=== PATIENT | female | born 1945 | race Caucasian/White ===

== ENCOUNTER 2016-09-05 10:18 | Emergency (ER) | payer MEDICARE ==
[2016-09-05] MEDS ORDERED: BABY ASPIRIN 81 MG CHEW PO ONE (10:29)
[2016-09-05] MEDS ORDERED: Sodium Chloride 0.9% 1000 ML 1,000 ML IV SCH (10:30)
[2016-09-05] MEDS ORDERED: Sodium Chloride 0.9% 1000 ML 1,000 ML ONE (10:37)
[2016-09-05] MEDS ORDERED: BABY ASPIRIN 81 MG CHEW ONE (10:37)
--- NOTE | 2016-09-05 10:38 | ERPHSYRPT ---
- History of Present Illness Time Seen by Provider: 09/05/16 10:31 Source: patient Exam Limitations: no limitations Physician History: This is a 70-year-old white female with history of high blood pressure, hypothyroidism, SVT and arthritis. Patient arrives with complaints that she feels as if her blood pressure has been up since starting losartin, she states she has been intermittently feeling like her heart has been pounding since this was started on August 27, 2016 According to the patient this morning when she got up around 7:00 she began to feel as if she was having a pounding in her chest she denied any shortness of breath she did have some nausea she felt like her blood pressure was elevated at home She denies chest pain other than pounding in her chest Patient does have a history of hypothyroidism Past medical history includes type blood pressure, hypothyroidism, arthritis, vitamin D deficiency, supraventricular tachycardia Past surgical history includes cholecystectomy, , tonsillectomy, arthroscopic surgery right knee Social history patient denies tobacco or alcohol use she does state she drinks some coffee on occasion Timing/Duration: today (today at 7:00) Severity: moderate Modifying Factors: Improves With: medication (recently started losartan) Associated Symptoms: nausea, other (palpitations), No vomiting, No abdominal pain, No shortness of breath, No heartburn, No diaphoresis, No cough, No chills , No chest pain, No fever, No headaches, No loss of appetite, No malaise, No rash, No syncope, No seizure, No weakness Allergies/Adverse Reactions: No Known Drug Allergies Allergy (Verified 09/05/16 10:46) Home Medications: Levothyroxine Sodium [Synthroid] 88 mcg PO DAILY 04/06/16 [History] Diltiazem HCl [Cardizem Cd] 180 mg PO DAILY 09/05/16 [History] Losartan Potassium [Cozaar] 100 mg PO DAILY 09/05/16 [History] Hx Influenza Vaccination/Date Given: No Hx Pneumococcal Vaccination/Date Given: Yes - Review of Systems Constitutional: No Fever, No Chills Eyes: No Symptoms Ears, Nose, & Throat: No Symptoms Respiratory: No Cough, No Dyspnea Cardiac: Palpitations, Other (feels pounding in her chest), No Chest Pain, No Edema, No Syncope, No Orthopnea, No PND Abdominal/Gastrointestinal: Nausea, No Abdominal Pain, No Vomiting, No Diarrhea , No Constipation, No Hematemesis, No Hematochezia, No Melena, No Dysphagia, No Appetite Changes Genitourinary Symptoms: No Dysuria Musculoskeletal: No Back Pain, No Neck Pain Skin: No Rash Neurological: No Dizziness, No Focal Weakness, No Sensory Changes Psychological: No Symptoms Endocrine: No Symptoms All Other Systems: Reviewed and Negative - Past Medical History Pertinent Past Medical History: Yes Neurological History: No Pertinent History ENT History: No Pertinent History Cardiac History: No Pertinent History Respiratory History: No Pertinent History Endocrine Medical History: Hypothyroidism Musculoskeletal History: Arthritis GI Medical History: Gallbladder Disease Psycho-Social History: No Pertinent History Female Reproductive Disorders: No Pertinent History Other Medical History: vit d difficency, shogrens disease, R knee arthroscopy, cholecystectomy, 3 C/S - Past Surgical History Past Surgical History: Yes Neuro Surgical History: No Pertinent History Cardiac: No Pertinent History Respiratory: No Pertinent History Gastrointestinal: Cholecystectomy Genitourinary: No Pertinent History Musculoskeletal: Orthopedic Surgery Female Surgical History: Section Other Surgical History: tonsils, arthorsopy - Social History Smoking Status: Former smoker Exposure to second hand smoke: No Drug Use: none Patient Lives Alone: No - Nursing Vital Signs Nursing Vital Signs: Initial Vital Signs Temperature 98.6 F Temperature Source Oral Pulse Rate [] 94 Pulse Rate 76 Respiratory Rate 16 Blood Pressure [] 139/76 Pain Intensity 0 - Physical Exam General Appearance: no apparent distress, alert Eye Exam: PERRL/EOMI, eyes nml inspection Ears, Nose, Throat Exam: normal ENT inspection, TMs normal, pharynx normal, moist mucous membranes Neck Exam: normal inspection, non-tender, supple, full range of motion Respiratory Exam: normal breath sounds, lungs clear, No respiratory distress Cardiovascular Exam: regular rate/rhythm, normal heart sounds, normal peripheral pulses Gastrointestinal/Abdomen Exam: soft, normal bowel sounds, No tenderness, No mass Back Exam: normal inspection, normal range of motion, No CVA tenderness, No vertebral tenderness Extremity Exam: normal inspection, normal range of motion, pelvis stable Neurologic Exam: alert, oriented x 3, cooperative, normal mood/affect, nml cerebellar function, nml station & gait, sensation nml, No motor deficits Skin Exam: normal color, warm, dry, No rash SpO2 Interpretation: normal (97%) - Course Nursing assessment & vital signs reviewed: Yes EKG Interpreted by Me: RATE (90 bpm), Sinus Rhythm, NORMAL AXIS, Other (EKG, normal sinus rhythm 90 bpm normal axis no acute ST or T wave changes compared to April 06, 2016) - Radiology Exams Chest X-ray Interpretation: Interpreted by me, Negative, No Pneumonia, No Pneumothorax , Other (no acute disease process noted) Ordered Tests: Active Orders 24 hr Category Date Time Status Manufacturing Associate STAT Care 09/05/16 10:29 Active EKG-ER Only STAT Care 09/05/16 10:29 Active IV Insertion STAT Care 09/05/16 10:29 Active Pulse Oximetry (ED) STAT Care 09/05/16 10:29 Active CHEST 1 VIEW (PORTABLE) Stat Exams 09/05/16 10:30 Taken CBC W DIFF Stat Lab 09/05/16 10:35 Completed CMP Stat Lab 09/05/16 10:35 Completed TROPONIN Q3H Lab 09/05/16 10:30 Completed TROPONIN Q3H Lab 09/05/16 13:30 Ordered TROPONIN Q3H Lab 09/05/16 16:30 Ordered TROPONIN Q3H Lab 09/05/16 19:30 Ordered TROPONIN Q3H Lab 09/05/16 22:30 Ordered TSH [TSH, 3RD Generation] Stat Lab 09/05/16 10:35 Completed Medication Summary Generic Name Dose Route Start Last Admin Trade Name Freq PRN Reason Stop Dose Admin Sodium Chloride 1,000 mls @ 50 mls/hr 09/05/16 10:30 09/05/16 10:37 Sodium Chloride 0.9% 1000 Ml IV 10/05/16 10:29 50 mls/hr .Q20H ERASTO Administration Discontinued Medications Generic Name Dose Route Start Last Admin Trade Name Freq PRN Reason Stop Dose Admin Aspirin 324 mg 09/05/16 10:29 09/05/16 10:37 Baby Aspirin 81 Mg Chew PO 09/05/16 10:30 324 mg STAT ONE Administration Aspirin Confirm 09/05/16 10:37 Baby Aspirin 81 Mg Chew Administered 09/05/16 10:38 Dose 324 mg .ROUTE .STK-MED ONE Sodium Chloride Confirm 09/05/16 10:37 Sodium Chloride 0.9% 1000 Ml Administered 09/05/16 10:38 Dose 1,000 mls @ ud .ROUTE .STK-MED ONE Lab/Rad Data: Laboratory Result Diagrams 09/05/16 10:35 09/05/16 10:35 Laboratory Results 09/05/16 09/05/16 09/05/16 Range/Units 10:35 10:35 10:35 WBC 5.2 (4.0-10.5) K/mm3 RBC 4.05 L (4.1-5.4) M/mm3 Hgb 12.9 (12.0-16.0) gm/dl Hct 39.2 (35-47) % MCV 96.8 (78-100) fl MCH 31.8 (26-32) pg MCHC 32.9 (32-36) g/dl RDW 12.6 (11.5-14.0) % Plt Count 239 (150-450) K/mm3 MPV 11.0 H (6-9.5) fl Gran % 68.2 H (36.0-66.0) % Lymphocytes % 13.6 L (24.0-44.0) % Monocytes % 17.0 H (0.0-12.0) % Eosinophils % 0.8 (0.00-5.0) % Basophils % 0.4 (0.0-0.4) % Basophils # 0.02 (0-0.4) Sodium 142 (136-145) mEq/L Potassium 4.0 (3.5-5.1) mEq/L Chloride 105 (98-107) mEq/L Carbon Dioxide 26.3 (21-32) mEq/L Anion Gap 14.9 (5-15) MEQ/L BUN 18 (9-20) mg/dL Creatinine 0.87 (0.55-1.30) mg/dl Estimated GFR > 60 ML/MIN Glucose 106 (70-110) MG/DL Calcium 8.8 (8.5-10.1) mg/dL Total Bilirubin 0.4 (0.2-1.0) mg/dL AST 14 L (15-37) U/L ALT 19 (12-78) U/L Alkaline Phosphatase 65 (46-116) U/L Troponin I (0.000-0.056) ng/ml Serum Total Protein 7.0 (6.4-8.2) gm/dL Albumin 3.9 (3.4-5.0) g/dL TSH 3rd Generation 0.594 (0.358-3.740) mIU/L 09/05/16 Range/Units 10:30 WBC (4.0-10.5) K/mm3 RBC (4.1-5.4) M/mm3 Hgb (12.0-16.0) gm/dl Hct (35-47) % MCV (78-100) fl MCH (26-32) pg MCHC (32-36) g/dl RDW (11.5-14.0) % Plt Count (150-450) K/mm3 MPV (6-9.5) fl Gran % (36.0-66.0) % Lymphocytes % (24.0-44.0) % Monocytes % (0.0-12.0) % Eosinophils % (0.00-5.0) % Basophils % (0.0-0.4) % Basophils # (0-0.4) Sodium (136-145) mEq/L Potassium (3.5-5.1) mEq/L Chloride (98-107) mEq/L Carbon Dioxide (21-32) mEq/L Anion Gap (5-15) MEQ/L BUN (9-20) mg/dL Creatinine (0.55-1.30) mg/dl Estimated GFR ML/MIN Glucose (70-110) MG/DL Calcium (8.5-10.1) mg/dL Total Bilirubin (0.2-1.0) mg/dL AST (15-37) U/L ALT (12-78) U/L Alkaline Phosphatase (46-116) U/L Troponin I < 0.017 (0.000-0.056) ng/ml Serum Total Protein (6.4-8.2) gm/dL Albumin (3.4-5.0) g/dL TSH 3rd Generation (0.358-3.740) mIU/L - Progress Progress: improved Progress Note: 09/05/16 10:37 70-year-old white female with history of SVT and hypertension. She arrives with complaint of intermittent pounding in her chest which has been going on since beginning Losartin for control of her blood pressure on August 27, 2016 Patient states that this morning she was getting up getting ready to get dressed and began having pounding in her chest she did not have any shortness of breath she did have some nausea no vomiting Patient states she felt like her blood pressure was elevated at home. On arrival patient with a essentially normal blood pressure pulse she does not appear to be in acute distress. Will go ahead and give patient aspirin check cardiac enzymes CMP EKG chest x- ray. And check TSH. 09/05/16 11:44 Patient's EKG chest x-ray labs all essentially normal. Patient's blood pressure stable. Patient without any chest pain at this time. Patient does not want to stay for repeat troponins. repeat troponins were offered. Will discharge 09/05/16 11:46 - Departure Time of Disposition: 11:45 Departure Disposition: Home Clinical Impression: Palpitations Condition: Stable Critical Care Time: No Additional Instructions: Return home. Rest. Medications as prescribed by your family doctor. Avoid caffeine. Follow-up with your family doctor. Return for acute distress or for severe symptoms.
[2016-09-05 10:45] VITALS: O2SAT 97
[2016-09-05 10:49] LABS: BASOPHIL % 0.4 % (0.0-0.4); Eosinophil % 0.8 % (0.00-5.0); Granulocytes % 68.2 % (36.0-66.0); Lymphocytes % 13.6 % (24.0-44.0); Mean Cell Volume 96.8 fl (78-100); Platelet Count 239 K/mm3 (150-450); Red Blood Count 4.05 M/mm3 (4.1-5.4); Red Cell Distribution Width 12.6 % (11.5-14.0); White Blood Count 5.2 K/mm3 (4.0-10.5)
[2016-09-05 10:51] LABS: Mean Corpuscular Hemoglobin 31.8 pg (26-32)
[2016-09-05 11:05] LABS: ALBUMIN 3.9 g/dL (3.4-5.0); ALKALINE PHOSPHATASE 65 U/L (46-116); ANION GAP 14.9 MEQ/L (5-15); BILIRUBIN,TOTAL 0.4 mg/dL (0.2-1.0); BLOOD UREA NITROGEN 18 mg/dL (9-20); CHLORIDE 105 mEq/L (98-107); Carbon Dioxide 26.3 mEq/L (21-32); Glucose 106 MG/DL (70-110); SGOT/AST 14 U/L (15-37); SGPT/ALT 19 U/L (12-78); SODIUM 142 mEq/L (136-145)
[2016-09-05 12:07] VITALS: BP 136/70; PULSE 96
--- NOTE | 2016-09-05 20:40 | XRAY ---
Indication: Palpitations. Comparison: April 06, 2016. Portable chest again demonstrates normal heart, lungs, and bony thorax.
== END 2016-09-05 12:06 | disposition home or self-care (01) ==
LOC: ED 10:18
DX: R00.2 Palpitations (principal); I10 Essential (primary) hypertension; E03.9 Hypothyroidism, unspecified; I47.1 Supraventricular tachycardia; M19.90 Unspecified osteoarthritis, unspecified site; E55.9 Vitamin D deficiency, unspecified; R11.0 Nausea
CPT/HCPCS: 36000; 36415; 71010; 80053; 84443; 84484; 85025; 93005; 93041; 96360; 96361; 99283; 99285

== ENCOUNTER 2017-12-23 11:43 | Emergency (ER) | payer MEDICARE ==
[2017-12-23 12:03] VITALS: BP 142/85; PULSE 76; O2SAT 96
--- NOTE | 2017-12-23 12:15 | ERPHSYRPT ---
- History of Present Illness Time Seen by Provider: 12/23/17 12:03 Source: patient Exam Limitations: no limitations Patient Subjective Stated Complaint: states stepped down off a step at home yesterday and felt something pop behind left knee. now having pain posterior left knee and numbness down left leg. Triage Nursing Assessment: ambulated to room per self guarding left leg. skin w /d, color normal. left posterior knee tender to touch. good pedal pulse. left foot warm, normal color. no edema noted Physician History: This is a 72-year-old white female with history of high blood pressure, hypothyroidism, arthritis, vitamin D deficiency, SVT, Patient arrives with complaint of pain in her left knee she states she was stepping off a step and felt a pop in the back of her knee she states she is having pain in her left knee posteriorly and anteriorly she states she has pain with flexing her knee she states that she had some paresthesias in the left lateral calf She denies any other injury denies any hip pain no pain in her feet. Past medical history includes high blood pressure, hypothyroidism, arthritis, vitamin D deficiency, SVT Past surgical history includes cholecystectomy, , tonsillectomy, right knee arthroscopically Social history patient denies tobacco or illicit drug use Method of Injury: other (step down a step and felt a pop in the posterior left knee) Occurred: yesterday Quality: constant Severity of Pain-Max: moderate Severity of Pain-Current: mild Lower Extremities Pain: knee: left Modifying Factors: Improves With: movement (pain worse with bending left knee) Associated Symptoms: other (Pain with walking) Allergies/Adverse Reactions: No Known Drug Allergies Allergy (Verified 12/23/17 11:54) Home Medications: Levothyroxine Sodium [Synthroid] 88 mcg PO DAILY 04/06/16 [History] Diltiazem HCl [Cardizem Cd] 180 mg PO DAILY 09/05/16 [History] Losartan Potassium [Cozaar] 100 mg PO DAILY 09/05/16 [History] Metformin HCl [Metformin HCl] 500 mg PO BID 12/23/17 [History] Hx Tetanus, Diphtheria Vaccination/Date Given: No Hx Influenza Vaccination/Date Given: No Hx Pneumococcal Vaccination/Date Given: Yes - Review of Systems Constitutional: No Fever, No Chills Eyes: No Symptoms Ears, Nose, & Throat: No Symptoms Respiratory: No Cough, No Dyspnea Cardiac: No Chest Pain, No Edema, No Syncope Abdominal/Gastrointestinal: No Abdominal Pain, No Nausea, No Vomiting, No Diarrhea Genitourinary Symptoms: No Dysuria Musculoskeletal: Other (Pain in left knee worse with flexion and walking) Skin: No Rash Neurological: Parasthesia (Paresthesia left lateral calf) Psychological: No Symptoms Endocrine: No Symptoms All Other Systems: Reviewed and Negative - Past Medical History Pertinent Past Medical History: Yes Neurological History: No Pertinent History ENT History: No Pertinent History Cardiac History: Arrhythmia, Hypertension Respiratory History: Bronchitis Endocrine Medical History: Diabetes Type II, Hypothyroidism Musculoskeletal History: Arthritis GI Medical History: Gallbladder Disease Psycho-Social History: No Pertinent History Female Reproductive Disorders: No Pertinent History Other Medical History: vit d difficency, shogrens disease, R knee arthroscopy, cholecystectomy, 3 C/S - Past Surgical History Past Surgical History: Yes Neuro Surgical History: No Pertinent History Cardiac: No Pertinent History Respiratory: No Pertinent History Gastrointestinal: Cholecystectomy Genitourinary: No Pertinent History Musculoskeletal: Orthopedic Surgery Female Surgical History: Section Other Surgical History: tonsils, arthorsopy - Social History Smoking Status: Never smoker Exposure to second hand smoke: No Drug Use: none Patient Lives Alone: No - Female History Hx Now: No - Nursing Vital Signs Nursing Vital Signs: Initial Vital Signs Temperature 97.5 F 12/23/17 11:48 Pulse Rate 76 12/23/17 11:48 Respiratory Rate 16 12/23/17 11:48 Blood Pressure 142/85 12/23/17 11:48 O2 Sat by Pulse Oximetry 96 12/23/17 11:48 Pain Scale Pain Intensity 6 - Physical Exam General Appearance: mild distress Eyes, Ears, Nose, Throat Exam: moist mucous membranes Neck Exam: non-tender, supple Cardiovascular/Respiratory Exam: chest non-tender, normal breath sounds, regular rate/rhythm, no respiratory distress Gastrointestinal/Abdominal Exam: non-tender, guarding Back Exam: normal inspection, No vertebral tenderness Hips Exam: bilateral: non-tender, normal inspection, normal range of motion, no evidence of injury Legs Exam: bilateral leg: non-tender, normal inspection, normal range of motion , no evidence of injury Knees Exam: right knee: non-tender, normal inspection, normal range of motion, left knee: other (Left knee tender with palpation posteriorly and anteriorly, pain with flexion left knee , dp, pt pulses equal 2/4 good capillary refill all toes, sensation intact all toes,full rom all toes) Ankle Exam: bilateral ankle: non-tender, normal inspection, normal range of motion, no evidence of injury Foot Exam: bilateral foot: non-tender, normal inspection, normal range of motion , no evidence of injury DTR - Lower Extremities Exam: ankle (R): 2+, ankle (L): 2+ Neuro/Tendon Exam: normal sensation, normal motor functions, No motor deficit, No sensory deficit Mental Status Exam: alert, oriented x 3, cooperative Skin Exam: normal color, warm, dry SpO2 Interpretation: normal (96%) SpO2: 96 - Course Nursing assessment & vital signs reviewed: Yes - Radiology Exams Left Knee X-ray Interpretation: Discussed w/ radiologist (3 view left knee: minimal minimal joint space narrowing/ spurring, tiny patella spurring, tiny lateral condylebone island, and small suprapatellar effusion. no other bony, articular , or soft tissue abnormalities.) Ordered Tests: Active Orders 24 hr Category Date Time Status KNEE (3 VIEWS) Stat Exams 12/23/17 12:09 Completed - Progress Progress: improved Progress Note: 12/23/17 12:26 72-year-old white female arrives with complaint of pain in her left posterior and anterior knee symptoms since yesterday patient states that she stepped on a step and felt a pop in the posterior left knee she states she has pain worse with flexion of the left knee pain is in the posterior aspect of the left knee and some anteriorly she states that she did have some paresthesia along her left calf she has had not had any of of this in her toes on physical examination patient the with decreased range of motion to the left knee secondary pain left knee tender with palpation anteriorly and posteriorly patient has full range of motion to her left ankle foot and toes sensation intact to all toes she has good capillary refill to all toes dorsal pedal posterior tibial pulses are intact. Will go ahead and obtain x-ray left knee. I had offered the patient an injection of Toradol for pain she states "I'm not into shots or pills" patient does not want anthing at this time. 12/23/17 12:49 X-ray left knee shows minimal medial joint space narrowing/spurring, tiny patellar spurring, tiny lateral condyle bone island, and small nonspecific suprapatellar effusion. No other bony, articular, or soft tissue abnormalities. Patient's knee is reexamined stable to anterior posterior drawer medial collateral ligament stress she does have a small suprapatellar effusion. Will go ahead and place Gee wrap on the left knee provide patient with left knee immobilizer. Patient states that she would like to take ibuprofen at home. Patient will be recommended follow-up with her family doctor she is to call and make an appointment. She is return for acute distress or for severe symptoms. - Departure Time of Disposition: 12:50 Departure Disposition: Home Clinical Impression: Strain of left knee Qualifiers: Encounter type: initial encounter Qualified Code(s): S86.912A - Strain of unspecified muscle(s) and tendon(s) at lower leg level, left leg, initial encounter Left knee pain Qualifiers: Chronicity: acute Qualified Code(s): M25.562 - Pain in left knee Condition: Fair Critical Care Time: No Referrals: SURI MEANS [Primary Care Provider] - Instructions: Knee Sprain (DC), Knee Pain (DC) Additional Instructions: Return home. Ice and elevate your left knee 24-48 hours. Advil [id number] 2-3 tablets every 6 hours with food as needed for pain up to 5 days. Follow-up with your family doctor call and schedule follow-up appointment. Return for acute distress or for severe symptoms.
--- NOTE | 2017-12-23 12:41 | XRAY ---
Indication: Pain and swelling following stepping injury. Comparison: None 3 views of the left knee demonstrates minimal medial joint space narrowing/spurring, tiny patella spurring, tiny lateral condyle bone island, and small nonspecific suprapatellar effusion. No other bony, articular, or soft tissue abnormalities.
== END 2017-12-23 13:21 | disposition home or self-care (01) ==
LOC: ED 11:43
DX: S86.912A Strain of unspecified muscle(s) and tendon(s) at lower leg level, left leg, initial encounter (principal); M25.562 Pain in left knee; Y93.01 Activity, walking, marching and hiking; X58.XXXA Exposure to other specified factors, initial encounter; Y92.009 Unspecified place in unspecified non-institutional (private) residence as the place of occurrence of the external cause; E11.9 Type 2 diabetes mellitus without complications; Z79.84 Long term (current) use of oral hypoglycemic drugs; Z79.899 Other long term (current) drug therapy
CPT/HCPCS: 73562; 99284; L1830

== ENCOUNTER 2018-04-04 11:22 | Emergency (ER) | payer MEDICARE ==
[2018-04-04 11:50] VITALS: BP 163/80; PULSE 81; O2SAT 98
--- NOTE | 2018-04-04 12:35 | ERPHSYRPT ---
- History of Present Illness Time Seen by Provider: 04/04/18 12:24 Source: patient, family Exam Limitations: no limitations Patient Subjective Stated Complaint: pt reports severe left calf pain. pt reports having knee surgery at [facility] 03/31/18 to repair a torn meniscus and also a partially torn ACL. surgeon was Dr. Rendon. pt reports prior to surgery she had this pain. she had an MRI and an ultrasound of the left knee showing a gutierrez's cyst. pt reports she called surgeon's office and they told her to continue her flexion and extension exercises to help with the pain. pt states she cannot bear weight without intense pain. pt is concerned she may have a blood clot. Triage Nursing Assessment: pt is aox3, pupils perrl, afebrile, resps easy and non labored, radial pulses strong and equal. pain localized to the left knee that radiates to the mid calf. pain is worse with movement and weight bearing. mild swelling noted to the left knee and calf region. pedal pulses are strong and equal. pt able to stand and pivot to the bed. pt sensation is intact. ROM is limited due to pain. two small incisions noted medial and lateral of the knee cap, stitches present. no redness, drainage or odor noted. skin is well approximated. Physician History: The patient is a 72-year-old female who is status post left knee meniscal repair on 03/31/18 who had immediate complaint of left lower leg pain after she woke up from surgery. It is still hurting severely today. She went to physical therapy but had to stop because it was hurting too much. Physical therapy told her to come to the ER for evaluation. The day following the surgery, she called the surgeon and told him about the pain. She was told to keep stretching her leg and taking her pain medicines. She has taken some hydrocodone but it doesn't help. She takes her Tylenol extra strength and that helps some. Her daughters a nurse and is worried about blood clots. Her past medical history is significant for bilateral knee meniscal repairs, hypertension , hypothyroidism, and diabetes. Method of Injury: other (knee surgeryu) Occurred: days ago (4) Quality: constant, sharpness Lower Extremities Pain: leg: left (lower leg) Modifying Factors: Improves With: pain medication Associated Symptoms: unable to bear weight Allergies/Adverse Reactions: No Known Drug Allergies Allergy (Verified 04/04/18 11:51) Home Medications: Levothyroxine Sodium [Synthroid] 88 mcg PO DAILY 04/06/16 [History] Losartan Potassium [Cozaar] 100 mg PO DAILY 09/05/16 [History] dilTIAZem HCl [Cardizem Cd] 180 mg PO DAILY 09/05/16 [History] Metformin HCl 500 mg PO BID 12/23/17 [History] Hx Tetanus, Diphtheria Vaccination/Date Given: (unk) Hx Influenza Vaccination/Date Given: No Hx Pneumococcal Vaccination/Date Given: No Immunizations Up to Date: Yes - Review of Systems Constitutional: No Fever, No Chills Eyes: No Symptoms Ears, Nose, & Throat: No Symptoms Respiratory: No Cough, No Dyspnea Cardiac: No Chest Pain, No Edema, No Syncope Abdominal/Gastrointestinal: No Abdominal Pain, No Nausea, No Vomiting, No Diarrhea Genitourinary Symptoms: No Dysuria Musculoskeletal: Injury Skin: No Rash Neurological: No Dizziness, No Focal Weakness, No Sensory Changes Psychological: No Symptoms Endocrine: No Symptoms Hematologic/Lymphatic: No Symptoms Immunological/Allergic: No Symptoms All Other Systems: Reviewed and Negative - Past Medical History Pertinent Past Medical History: Yes Neurological History: No Pertinent History ENT History: No Pertinent History Cardiac History: Arrhythmia Respiratory History: No Pertinent History Endocrine Medical History: Diabetes Type II, Hypothyroidism Musculoskeletal History: Arthritis GI Medical History: Gallbladder Disease Psycho-Social History: No Pertinent History Female Reproductive Disorders: No Pertinent History Other Medical History: vit d difficency, shogrens disease, R knee arthroscopy, cholecystectomy, 3 C/S - Past Surgical History Past Surgical History: Yes Neuro Surgical History: No Pertinent History Cardiac: No Pertinent History Respiratory: No Pertinent History Gastrointestinal: Cholecystectomy Genitourinary: No Pertinent History Musculoskeletal: Orthopedic Surgery Female Surgical History: Section Other Surgical History: tonsils, arthorsopy left and right knee. meniscal tear , partial ACL tear, repaired 03/31/18 - Social History Smoking Status: Never smoker Exposure to second hand smoke: No Drug Use: none Patient Lives Alone: No - Female History Hx Now: No - Nursing Vital Signs Nursing Vital Signs: Initial Vital Signs Temperature 97.8 F 04/04/18 11:32 Pulse Rate 81 04/04/18 11:32 Respiratory Rate 20 04/04/18 11:32 Blood Pressure 163/80 04/04/18 11:32 O2 Sat by Pulse Oximetry 98 04/04/18 11:32 Pain Scale Pain Intensity 8 - Physical Exam General Appearance: alert Eyes, Ears, Nose, Throat Exam: moist mucous membranes Neck Exam: non-tender, supple Cardiovascular/Respiratory Exam: chest non-tender, normal breath sounds, regular rate/rhythm, no respiratory distress Gastrointestinal/Abdominal Exam: non-tender, guarding Back Exam: normal inspection, No vertebral tenderness Hips Exam: bilateral: normal inspection Knees Exam: left knee: ecchymosis, pain, soft tissue tenderness, swelling (calf) Ankle Exam: bilateral ankle: normal inspection Foot Exam: bilateral foot: normal inspection Neuro/Tendon Exam: normal sensation, normal motor functions Mental Status Exam: alert, oriented x 3, cooperative Skin Exam: ecchymosis (left calf) SpO2 Interpretation: normal SpO2: 98 Oxygen Delivery: Room Air - Radiology Ultrasound Exam Left Venous Lower Extremity Ultrasound: tele radiology report (per U/S tech: no DVT) Ordered Tests: Active Orders 24 hr Category Date Time Status IV Insertion STAT Care 04/04/18 12:40 Active VENOUS UNILAT/LIMITED EXTREMIT [US] Stat Exams 04/04/18 Ordered Medication Summary Discontinued Medications Generic Name Dose Route Start Last Admin Trade Name Freq PRN Reason Stop Dose Admin Nalbuphine HCl 10 mg 04/04/18 12:41 Nubain 10 Mg/Ml IV 04/04/18 12:42 STAT ONE Nalbuphine HCl Confirm 04/04/18 12:51 Nubain 10 Mg/Ml Administered 04/04/18 12:52 Dose 10 mg .ROUTE .STK-MED ONE - Progress Progress: improved Counseled pt/family regarding: diagnosis, rad results - Departure Time of Disposition: 13:07 Departure Disposition: Home Clinical Impression: Left leg pain Condition: Stable Critical Care Time: No Referrals: SURI MEANS [Primary Care Provider] - Additional Instructions: You have left calf pain. You do not have a DVT. You do not have compartment syndrome. You were given Nubain 10 mg by IV in the ER. Take tramadol 50 mg every 4-6 hours as needed for pain. You may also continue to take Tylenol 1000 mg every 6-8 hours as needed. Resume physical therapy as tolerated. Prescriptions: Tramadol HCl 50 mg PO Q4-6HPRN PRN #10 tablet PRN Reason: Pain
[2018-04-04] MEDS ORDERED: Nubain 10 MG/ML IV ONE (12:41)
[2018-04-04] MEDS ORDERED: Nubain 10 MG/ML ONE (12:51)
--- NOTE | 2018-04-04 13:20 | XRAY ---
Indication: Left leg pain. Status post knee surgery March 31, 2018. Two-dimensional sonogram and color Doppler imaging of the major venous vessels of the left leg was performed. Comparison: January 04, 2018. Again no thrombus seen in the examined deep venous vessels of the left leg including greater saphenous vein. Veins demonstrate normal compressibility. Venous waveforms are normal with and without augmentation. Stable small flat Brown's cyst. Impression: Left leg again negative for DVT. Grossly stable Brown's cyst.
[2018-04-04] MEDS ORDERED: Nubain 10 MG/ML IM ONE (13:38)
== END 2018-04-04 13:48 | disposition home or self-care (01) ==
LOC: ED 11:22
DX: M79.605 Pain in left leg (principal); Z98.890 Other specified postprocedural states; Z79.899 Other long term (current) drug therapy; E11.9 Type 2 diabetes mellitus without complications; Z79.84 Long term (current) use of oral hypoglycemic drugs
CPT/HCPCS: 93971; 99284; 99291; J2300

== ENCOUNTER 2021-08-20 06:52 | Day surgery (SDC) | payer MEDICARE ==
[2021-08-20] MEDS ORDERED: Depo-Medrol 40 MG/ML IM ONE (06:53)
[2021-08-20] MEDS ORDERED: LIDOCAINE HCL 2% 100 MG/5 ML IJ ONE (06:53)
[2021-08-20] MEDS ORDERED: DIPRIVAN 200 MG/20 ML IV ONE (08:54)
--- NOTE | 2021-08-20 10:20 | XRAY ---
Indication: Bilateral L4-S1 MBB. Intraoperative fluoroscopy provided for 18 seconds. Single digital spot image submitted for interpretation demonstrates posterior needle tips projecting over the expected left and right L4-S1 nerve roots. Correlate with intraoperative findings/report.
--- NOTE | 2021-08-20 10:55 | XRAY ---
18 seconds fluoroscopy time in surgery for bilateral L4-S1 MBB.
[2021-08-20] MEDS ORDERED: Lactated Ringers 1,000 ML IV ONE (11:20)
== END 2021-08-20 09:21 | disposition home or self-care (01) ==
LOC: SDC-PAIN 06:52
PROVIDERS: ATTEND Psychiatry & Neurology Pain Medicine
DX: M47.816 Spondylosis without myelopathy or radiculopathy, lumbar region (principal); E11.9 Type 2 diabetes mellitus without complications; Z79.899 Other long term (current) drug therapy
CPT/HCPCS: 64493; 64494; 72020; 77002; 82947; J1030; J2704

== ENCOUNTER 2022-02-04 06:48 | Day surgery (SDC) | payer MEDICARE ==
[2022-02-04] MEDS ORDERED: Sodium Chloride 0.9(Preservative Free) 10 ML IJ ONE (06:49)
[2022-02-04] MEDS ORDERED: Depo-Medrol 40 MG/ML IM ONE (06:49)
[2022-02-04] MEDS ORDERED: DIPRIVAN 200 MG/20 ML IV ONE (08:46)
[2022-02-04] MEDS ORDERED: Lactated Ringers 1,000 ML IV ONE (09:13)
--- NOTE | 2022-02-04 10:48 | XRAY ---
Indication: Right L4-S1 transforaminal MIKAL. Intraoperative fluoroscopy provided for 24 seconds. 4 digital spot image submitted for interpretation demonstrates posterior needle tips projecting over the expected right L4 and L5 nerve roots. Small amount of contrast injected for needle tip placement. Correlate with intraoperative findings/report.
--- NOTE | 2022-02-04 11:02 | XRAY ---
24 seconds of fluoroscopy was used in surgery for a right L4-S1 transforaminal MIKAL.
== END 2022-02-04 09:07 | disposition home or self-care (01) ==
LOC: SDC-PAIN 06:48
PROVIDERS: ATTEND Psychiatry & Neurology Pain Medicine
DX: M54.16 Radiculopathy, lumbar region (principal); E11.9 Type 2 diabetes mellitus without complications; Z79.899 Other long term (current) drug therapy
CPT/HCPCS: 64483; 64484; 72100; 77003; 82947; J1030; J2704; Q9966

== ENCOUNTER 2022-04-08 08:48 | Day surgery (SDC) | payer MEDICARE ==
[2022-04-08] MEDS ORDERED: Marcaine Mpf 0.5% Vial 30 Ml IJ ONE (08:49)
[2022-04-08] MEDS ORDERED: Depo-Medrol 40 MG/ML IM ONE (08:49)
[2022-04-08] MEDS ORDERED: Sodium Chloride 0.9(Preservative Free) 10 ML IJ ONE (08:49)
[2022-04-08] MEDS ORDERED: DIPRIVAN 200 MG/20 ML IV ONE (10:18)
--- NOTE | 2022-04-08 10:51 | XRAY ---
Indication: Left L4-S1 Transforaminal MIKAL. Intraoperative fluoroscopy provided for 25 seconds. 3 digital spot images submitted for interpretation demonstrates posterior needle tips projecting over the expected left L4 and L5 nerve roots. Small amount of contrast injected for needle tip placement. Correlate with intraoperative findings/report.
--- NOTE | 2022-04-08 10:53 | XRAY ---
Indication: Left hip injection. Intraoperative fluoroscopy provided for 11 seconds. Single digital spot image obtained prone submitted for interpretation demonstrates needle tip projecting just lateral to left greater trochanter. Small amount of contrast injected for needle tip placement. Correlate with intraoperative findings/report.
--- NOTE | 2022-04-08 10:56 | XRAY ---
25 seconds fluoroscopy time in surgery for left L4-S1 transforaminal MIKAL.
--- NOTE | 2022-04-08 10:57 | XRAY ---
11 seconds fluoroscopy time in surgery for injection of the greater trochanter of the left hip.
[2022-04-08] MEDS ORDERED: Lactated Ringers 1,000 ML IV ONE (12:41)
== END 2022-04-08 10:50 | disposition home or self-care (01) ==
LOC: SDC-PAIN 08:48
PROVIDERS: ATTEND Psychiatry & Neurology Pain Medicine
DX: M54.16 Radiculopathy, lumbar region (principal); M16.12 Unilateral primary osteoarthritis, left hip; E11.9 Type 2 diabetes mellitus without complications; Z79.899 Other long term (current) drug therapy
CPT/HCPCS: 20610; 64483; 64484; 72100; 73501; 77002; 77003; 82947; J1030; J2704; Q9966

== ENCOUNTER 2022-06-03 09:42 | Day surgery (SDC) | payer MEDICARE ==
[2022-06-03] MEDS ORDERED: BUPIVACAINE 0.5% VIAL IJ ONE (09:43)
[2022-06-03] MEDS ORDERED: Depo-Medrol 40 MG/ML IM ONE (09:43)
[2022-06-03] MEDS ORDERED: Lactated Ringers 1,000 ML IV ONE (11:52)
--- NOTE | 2022-06-03 12:02 | XRAY ---
Indication: Bilateral SI joint injection. Intraoperative fluoroscopy provided for 16 seconds. 5 digital spot images submitted for interpretation demonstrates posterior needle tip projecting over left and right SI joint. Correlate with intraoperative findings/report.
--- NOTE | 2022-06-03 12:02 | XRAY ---
16 seconds of fluoroscopy was used in surgery for a bilateral sacroiliac joint injection.
== END 2022-06-03 11:35 | disposition home or self-care (01) ==
LOC: SDC-PAIN 09:42
PROVIDERS: ATTEND Psychiatry & Neurology Pain Medicine
DX: M46.1 Sacroiliitis, not elsewhere classified (principal); E11.9 Type 2 diabetes mellitus without complications; Z79.899 Other long term (current) drug therapy
CPT/HCPCS: 01992; 27096; 72202; 77002; 82947; 99100; G0260; J1030

== ENCOUNTER 2022-07-08 08:10 | Day surgery (SDC) | payer MEDICARE ==
[2022-07-08] MEDS ORDERED: LIDOCAINE HCL 1% 50 MG/5 ML VL PF IJ ONE (08:11)
[2022-07-08] MEDS ORDERED: Depo-Medrol 40 MG/ML IM ONE (08:11)
[2022-07-08] MEDS ORDERED: Sodium Chloride 0.9(Preservative Free) 10 ML IJ ONE (08:11)
[2022-07-08] MEDS ORDERED: DIPRIVAN 200 MG/20 ML IV ONE (09:30)
--- NOTE | 2022-07-08 10:31 | XRAY ---
Indication: Lumbar MIKAL. Intraoperative fluoroscopy provided for 13 seconds. 2 digital spot image submitted for interpretation demonstrates posterior needle tip projecting posterior to lumbosacral junction interspace. Small amount of contrast injected for needle tip placement. Correlate with intraoperative findings/report.
--- NOTE | 2022-07-08 10:46 | XRAY ---
13 seconds of fluoroscopy was used in surgery for a lumbar MIKAL.
[2022-07-08] MEDS ORDERED: Lactated Ringers 1,000 ML IV ONE (12:50)
== END 2022-07-08 09:49 | disposition home or self-care (01) ==
LOC: SDC-PAIN 08:10
PROVIDERS: ATTEND Psychiatry & Neurology Pain Medicine
DX: M54.16 Radiculopathy, lumbar region (principal); E11.9 Type 2 diabetes mellitus without complications; Z79.899 Other long term (current) drug therapy
CPT/HCPCS: 62323; 72100; 77003; 82947; J1030; J2001; J2704; Q9966

== ENCOUNTER 2022-09-16 06:45 | Day surgery (SDC) | payer MEDICARE ==
[2022-09-16] MEDS ORDERED: Depo-Medrol 40 MG/ML IM ONE (06:46)
[2022-09-16] MEDS ORDERED: BUPIVACAINE 0.5% VIAL IJ ONE (06:46)
[2022-09-16] MEDS ORDERED: DIPRIVAN 200 MG/20 ML IV ONE (08:43)
--- NOTE | 2022-09-16 10:26 | XRAY ---
Indication: Bilateral L4-S1 MBB. Intraoperative fluoroscopy provided for 21 seconds. Single digital spot image submitted for interpretation demonstrates posterior needle tips projecting over the expected left and right L4-S1 nerve roots. Correlate with intraoperative findings/report.
--- NOTE | 2022-09-16 11:15 | XRAY ---
21 seconds of fluoroscopy was used in surgery for a bilateral L4-S1 MBB.
[2022-09-16] MEDS ORDERED: Lactated Ringers 1,000 ML IV ONE (14:13)
== END 2022-09-16 09:06 | disposition home or self-care (01) ==
LOC: SDC-PAIN 06:45
PROVIDERS: ATTEND Psychiatry & Neurology Pain Medicine
DX: M47.816 Spondylosis without myelopathy or radiculopathy, lumbar region (principal); E11.9 Type 2 diabetes mellitus without complications; Z79.899 Other long term (current) drug therapy
CPT/HCPCS: 64493; 64494; 72020; 77002; 82947; J1030; J2704

== ENCOUNTER 2023-06-16 06:51 | Day surgery (SDC) | payer MEDICARE ==
[2023-06-16] MEDS ORDERED: Depo-Medrol 40 MG/ML IM ONE (06:52)
[2023-06-16] MEDS ORDERED: BUPIVACAINE 0.5% VIAL IJ ONE (06:52)
[2023-06-16] MEDS ORDERED: XYLOCAINE-MPF 1% 5ML SDV IJ ONE (06:52)
[2023-06-16] MEDS ORDERED: DIPRIVAN 200 MG/20 ML IV ONE (08:36)
[2023-06-16] MEDS ORDERED: Lactated Ringers 1,000 ML IV ONE (13:41)
--- NOTE | 2023-06-16 20:53 | XRAY ---
Indication: Left L4-S1 RFA. Intraoperative fluoroscopy provided for 22 seconds. 3 digital spot image submitted for interpretation demonstrates posterior needle tip projecting over the expected left L4-S1 nerve roots. Correlate with intraoperative findings/report.
--- NOTE | 2023-06-16 21:41 | XRAY ---
22 seconds of fluoroscopy was used in surgery for a left L4-S1 RFA.
== END 2023-06-16 09:03 | disposition home or self-care (01) ==
LOC: SDC-PAIN 06:51
PROVIDERS: ATTEND Psychiatry & Neurology Pain Medicine
DX: M47.816 Spondylosis without myelopathy or radiculopathy, lumbar region (principal); E11.9 Type 2 diabetes mellitus without complications
CPT/HCPCS: 64635; 64636; 72100; 77002; 82947; 99100; J1030; J2704

== ENCOUNTER 2023-06-23 06:51 | Day surgery (SDC) | payer MEDICARE ==
[2023-06-23] MEDS ORDERED: DIPRIVAN 200 MG/20 ML IV ONE (08:36)
[2023-06-23] MEDS ORDERED: Lactated Ringers 1,000 ML IV ONE (08:51)
--- NOTE | 2023-06-23 10:02 | XRAY ---
Indication: Right L4-S1 RFA. Intraoperative fluoroscopy provided for 25 seconds. 4 digital spot image submitted for interpretation demonstrates posterior needle tips projecting over the expected right L4-S1 nerve roots. Correlate with intraoperative findings/report.
--- NOTE | 2023-06-23 10:04 | XRAY ---
25 seconds of fluoroscopy was used in surgery for a right L4-S1 RFA.
== END 2023-06-23 08:49 | disposition home or self-care (01) ==
LOC: SDC-PAIN 06:51
PROVIDERS: ATTEND Psychiatry & Neurology Pain Medicine
DX: M47.816 Spondylosis without myelopathy or radiculopathy, lumbar region (principal); E11.9 Type 2 diabetes mellitus without complications; Z79.899 Other long term (current) drug therapy
CPT/HCPCS: 64635; 64636; 72100; 77002; 82947; 99100; J2704

== ENCOUNTER 2023-12-16 06:08 | Observation (INO) | payer MEDICARE ==
--- NOTE | 2023-12-16 06:46 | ERPHSYRPT ---
- History of Present Illness Time Seen by Provider: 12/16/23 06:30 Historian: patient Exam Limitations: no limitations Patient Subjective Stated Complaint: pt states she has been vomiting and having diarrhea since 0130 Triage Nursing Assessment: pt alert and oriented, answers questions approp. pt arrive per ambulance and transfers to [facility] with assist of 3. respirations nonlabored. skihn warm and dry. few bowel sounds heard. Physician History: 78-year-old female history of hypothyroidism, hypertension, SVT presents to emergency department for evaluation of neurolyse weakness nausea vomiting and diarrhea that started approximately 1 AM this morning. Patient states "I feel sick. Patient is experiencing some generalized abdominal pain however she reports pain is worse when she vomits. No active pain at rest. Vomit is described as bilious. Patient had supper today and states all was well at that time. No associated chest pain or shortness of breath. Although when patient falls asleep oxygen saturation drops down to approximately 88%. Patient placed on 2 L nasal cannula. While sleeping O2 sat is 92 to 93%. Symptoms are constant. Symptoms are moderate in intensity. No specific worsening improving factors. at bedside voices no other complaints or concerns at this time. Timing/Duration: today Activities at Onset: none Quality: aching Abdominal Pain Onset Location: generalized abdomen Pain Radiation: no radiation Severity of Pain-Max: moderate Severity of Pain-Current: mild Modifying Factors: Improves With: vomiting (Pain worse with vomiting) Associated Symptoms: diarrhea, nausea, vomiting Previous symptoms: no prior history Allergies/Adverse Reactions: No Known Drug Allergies Allergy (Verified 12/16/23 06:31) Home Medications: Levothyroxine Sodium [Synthroid] 88 mcg PO DAILY 04/06/16 [History] dilTIAZem HCl [Cardizem Cd] 180 mg PO DAILY 09/05/16 [History] Metformin HCl 500 mg PO BID 12/23/17 [History] Atorvastatin Calcium 10 mg PO DAILY 12/28/22 [History] Famotidine 20 mg PO DAILY PRN PRN 12/28/22 [History] Linaclotide [Linzess] 140 mcg PO DAILY 12/28/22 [History] Tizanidine HCl 4 mg [Zanaflex 4 MG] 4 mg PO DAILY PRN PRN 12/28/22 [History] Valsartan 80 mg PO DAILY 12/28/22 [History] Hx Tetanus, Diphtheria Vaccination/Date Given: No (unk) Hx Influenza Vaccination/Date Given: Yes Hx Pneumococcal Vaccination/Date Given: Yes Immunizations Up to Date: No Travel Risk - International Travel Have you traveled outside of the country in past 3 weeks: No - Emerging Infectious Disease Are you exhibiting symptoms associated with any current EIDs: No - Review of Systems Constitutional: No Symptoms, No Fever, No Chills Eyes: No Symptoms Ears, Nose, & Throat: No Symptoms Respiratory: No Symptoms, No Cough, No Dyspnea Cardiac: No Symptoms, No Chest Pain, No Edema, No Syncope Abdominal/Gastrointestinal: No Symptoms, No Abdominal Pain, No Nausea, No Vomiting, No Diarrhea Genitourinary Symptoms: No Symptoms, No Dysuria Musculoskeletal: No Symptoms, No Back Pain, No Neck Pain Skin: No Symptoms, No Rash Neurological: No Symptoms, No Dizziness, No Focal Weakness, No Sensory Changes Psychological: No Symptoms Endocrine: No Symptoms Hematologic/Lymphatic: No Symptoms Immunological/Allergic: No Symptoms All Other Systems: Reviewed and Negative - Past Medical History Pertinent Past Medical History: Yes Neurological History: No Pertinent History ENT History: No Pertinent History Cardiac History: Arrhythmia Respiratory History: No Pertinent History Endocrine Medical History: Diabetes Type II, Hypothyroidism Musculoskeletal History: Osteoarthritis GI Medical History: Gallbladder Disease Psycho-Social History: No Pertinent History Female Reproductive Disorders: No Pertinent History Other Medical History: hx of svt - Past Surgical History Past Surgical History: Yes Neuro Surgical History: No Pertinent History Cardiac: No Pertinent History Respiratory: No Pertinent History Gastrointestinal: Cholecystectomy Genitourinary: No Pertinent History Musculoskeletal: Orthopedic Surgery Female Surgical History: Section Other Surgical History: tonsils, arthorsopy left and right knee. meniscal tear, partial ACL tear, repaired 03/31/18 - Social History Smoking Status: Former smoker Exposure to second hand smoke: No Drug Use: none Patient Lives Alone: No - Nursing Vital Signs Nursing Vital Signs: Initial Vital Signs Temperature 97.5 F 12/16/23 06:09 Pulse Rate 99 H 12/16/23 06:09 Respiratory Rate 16 12/16/23 06:09 Blood Pressure 144/62 12/16/23 06:09 O2 Sat by Pulse Oximetry 93 L 12/16/23 06:09 Pain Scale Pain Intensity 0 - Physical Exam General Appearance: no apparent distress, alert Eye Exam: PERRL/EOMI, eyes nml inspection Ears, Nose, Throat Exam: normal ENT inspection, pharynx normal, moist mucous membranes, other (Dry appearing oral mucous membranes) Neck Exam: normal inspection, non-tender, supple, full range of motion Respiratory Exam: normal breath sounds, lungs clear, airway intact, No respiratory distress Cardiovascular Exam: regular rate/rhythm, normal heart sounds Gastrointestinal/Abdomen Exam: soft, tenderness (Generalized abdominal tenderness to palpation), No mass Back Exam: normal inspection, normal range of motion, No CVA tenderness, No vertebral tenderness Extremity Exam: normal inspection, normal range of motion, pelvis stable Neurologic Exam: alert, oriented x 3, cooperative, normal mood/affect, nml cerebellar function, sensation nml, No motor deficits Skin Exam: normal color, warm, dry Lymphatic Exam: No adenopathy SpO2 Interpretation: normal SpO2: 93 O2 Delivery: Room Air - Course Nursing assessment & vital signs reviewed: Yes Ordered Tests: Active Orders 24 hr Category Date Time Status IV Insertion STAT Care 12/16/23 06:39 Ordered ABDOMEN AND PELVIS W/0 CONTRAS [CT] Stat Exams 12/16/23 06:40 Ordered CBC W DIFF Stat Lab 12/16/23 06:39 Ordered CMP Stat Lab 12/16/23 06:39 Ordered LIPASE Stat Lab 12/16/23 06:39 Ordered TROPONIN Q4H Lab 12/16/23 06:45 Ordered TROPONIN Q4H Lab 12/16/23 10:45 Ordered TROPONIN Q4H Lab 12/16/23 14:45 Ordered UA W/RFX UR CULTURE Stat Lab 12/16/23 06:39 Ordered - Progress Progress: unchanged Progress Note: 78-year-old female presents to our ED for evaluation of generalized weakness, nausea vomiting diarrhea abdominal pain primarily during vomiting. Patient observed to be slightly hypoxic when she sleeps. Nasal cannula placed. Lungs are clear. Laboratory workup including urinalysis ordered. Results pending. CT abdomen pelvis ordered as well. It is currently the change of shift. Osorio brito endorsed to Dr. Jaime who will review the results of pending studies and make final disposition. However based on my initial assessment it appears that patient may likely require hospitalization. 12/16/23 06:47 12/16/23 06:48 Portions of this note were created with voice recognition technology. There may be grammatical, spelling, punctuation or sound alike errors Complexity problem addressed is moderate acute complicated. No critical care time. Complexity of data reviewed and analyzed is extensive. Test ordered chest reviewed results analyzed and correlated clinically with history and physical examination. Management discussed with provider. Risk of complication and or risk of morbidity/mortality patient management is high. Patient will likely require hospitalization for further evaluation and treatment. Vital stable. Time spent to admit patient approximately 20 minutes. Plan of care established for shared decision making. No social determinants of health present impede follow-up. Portions of this note were created with voice recognition technology. There may be grammatical, spelling, punctuation or sound alike errors Counseled pt/family regarding: lab results, diagnosis, need for follow-up, rad results - Departure Departure Disposition: Observation Clinical Impression: Nausea vomiting and diarrhea, Bilious emesis, Generalized weakness Condition: Stable Critical Care Time: No Referrals: HAY SYED MD [Primary Care Provider] - Follow up/PCP as directed Additional Instructions: Discharge/Care Plan SURI MOREJON was seen on 12/16/23 in the Emergency Room. The patient was counseled regarding Diagnosis,Lab results, Imaging studies, need for follow up and when to return to the Emergency Room. Prescriptions given: Discharge Note I have spoken with the patient and/or caregivers. I have explained the patient's condition, diagnosis and treatment plan based on the information available to me at this time. I have answered the patient's and/or caregiver's questions and addressed any concerns. The patient and/or caregivers have as good understanding of the patient's diagnosis, condition and treatment plan as can be expected at this point. The vital signs have been stable. The patient's condition is stable and appropriate for discharge from the emergency department. The patient will pursue further outpatient evaluation with the primary care physician or other designated or consulting physician as outlined in the [facility] hay[facility] instructions. The patient and/or caregivers are agreeable to this plan of care and follow-up instructions have been explained in detail. The patient and/or caregivers have received these instruction. The patient/and or caregivers are aware that any significant change in condition or worsening of symptoms should prompt an immediate return to this or the closest emergency department or call 911.
[2023-12-16 06:49] LABS: Hematocrit 39.6 % (35-47); Hemoglobin 12.8 g/dL (12.0-16.0); Mean Cell Volume 97.3 fL (78-100); Mean Corpuscular Hemoglobin 31.4 pg (26-32); Mean Corpuscular Hgb Concent. 32.3 g/dL (32-36); Mean Platelet Volume 11.3 fL (7.5-11.0); Platelet Count 253 x10^3/uL (150-450); Red Blood Count 4.07 x10^6/uL (4.1-5.4); Red Cell Distribution Width 13.6 % (11.5-14.0); White Blood Count 14.8 x10^3/uL (4.0-10.5)
[2023-12-16] MEDS ORDERED: Zofran 4 MG/2 ML VIAL ONE (06:56)
[2023-12-16] MEDS ORDERED: Sodium Chloride 0.9% 1000 ML 1,000 ML ONE (06:57)
[2023-12-16] MEDS: Sodium Chloride 0.9% 1000 ML 1,000 ML IV STA (07:00)
[2023-12-16] MEDS: Zofran 4 MG/2 ML VIAL IV ONE (07:00)
[2023-12-16 07:23] LABS: Lymphocytes 2 % (24-44); Monocyte 8 % (0.0-12.0); Neutrophils 90 % (36.0-66.0); Platelet Estimate NORMAL (NORMAL); Total Cells Counted 100
[2023-12-16 07:28] LABS: ALBUMIN 4.8 g/dL (3.5-5.0); BILIRUBIN,TOTAL 0.6 mg/dL (0.2-1.3); Calcium 9.7 mg/dL (8.4-10.2); Creatinine 1 1.05 mg/dL (0.52-1.04); EST GLOMERULAR FILTRATION RATE 54.7 ML/MIN; Potassium 3.7 mmol/L (3.5-5.1); Total Protein 8.2 g/dL (6.3-8.2)
--- NOTE | 2023-12-16 07:54 | XRAY ---
CLINICAL HISTORY: pain COMPARISON: None. TECHNIQUE: A CT of the abdomen and pelvis was performed with axial images as well as sagittal and coronal reconstruction images without intravenous contrast. DLP : 550.11 mGy-cm, CTDI : 10.85 mGy. One of the following dose reduction techniques was utilized for this exam: Automated exposure control, adjustment of the mA and/or kV according to patient size, and use of iterative reconstruction. FINDINGS: Scanned lung bases are grossly unremarkable. The liver is normal in size, and morphology and appears unremarkable with no intrahepatic or extrahepatic bile duct dilation. Possible small hypodense focal lesions are barely appreciated in the left lobe. The gall bladder is not visualized (surgically removed). Unremarkable non-enhanced CT appearance of the spleen, pancreas, and adrenal glands. The kidneys appear unremarkable with no calculi, cysts, or hydronephrosis. The small bowel loops are fluid-filled, few loops are distended reaching a maximum diameter of 2.5 cm with scanty air/gas. The terminal ileum is relatively less distended. The large bowel is also fluid-filled and is of average caliber. Multiple reactionary tiny lymph nodes are seen in the jejunal mesentery. The picture suggests enteritis, ileus, or impending obstruction. Few non-complicated colonic diverticula. A normal appendix is seen. No free fluid or free fluid was noted. No suspiciously enlarged retroperitoneal lymph nodes. A small fat-containing umbilical hernia is noted. The average caliber of both ureters. A small calcific focus is seen abutting the terminal left ureter mostly representing a phlebolith rather than a calculus. The bladder is unremarkable with no stones. The uterus is not clearly delineated (either small in size acceptable for age or surgically removed). No gross adnexal lesions. Atherosclerotic calcifications of the aorta, no aneurysmal dilations seen. Spondylodegenerative changes of the visualized spine, no gross lytic or sclerotic lesions. IMPRESSION: 1. Fluid-filled small bowel with few loops being distended (yet within normal limits at the time of scan). Multiple tiny reactionary lymph nodes in the jejunal mesentery. The picture could suggest enteritis or impending obstruction/ileus. Clinical correlation and follow-up are advised. 2. Few non-complicated colonic diverticula. 3. Possible small hypodense hepatic focal lesions for further evaluation with CECT to confirm or rule out this possibility. 4. Small fat-containing umbilical hernia. [facility] ER was called at [phone] at 6:49 AM [employer], 12/16/2023 and results were verbally communicated to the Reed Silvestre. Electronically Signed by: Melany Gramajo MD. (12/16/2023 07:50:27 EDT)
[2023-12-16] MEDS ORDERED: Zofran 4 MG/2 ML VIAL IV PRN (10:53)
[2023-12-16] MEDS ORDERED: MORPHINE SULFATE 2 MG INJ IV PRN (10:56)
--- NOTE | 2023-12-16 11:00 | PCM.HP ---
History of Present Illness - Chief Complaint Chief Complaint: Nausea /vomiting/ diarrhea Date: 12/16/23 History of Present Illness: is a 78 year old female with a pmhx of HTN, DM, HLD, DM, hypothyroid, and SVT who presented to [facility] 12/16/23 after experiencing sudden onset of nausea, bilious vomiting, diffuse abdominal pain, and diarrhea since 1 a.m. this morning. Denies fever, hematochezia, hematemesis, shortness of breath, dizziness, or chest pain. Patient reports she felt extremely weak and was unable to stand which prompted her to report to ED. Upon arrival to ED, vitals stable. EKG NS with no ST elevations/deviations suggest enteritis or impending obstruction/ileus. Lab findings remarkable with leukocytosis and mid ADELINA. Pt given IVF bolus and zofran in ED with noted relief. Plan for continued supportive therapies and observation. - Review of Systems Constitutional: Chills Eyes: No Symptoms Ears, Nose, & Throat: No Symptoms Respiratory: No Symptoms Cardiac: No Symptoms Abdominal/Gastrointestinal: Abdominal Pain, Nausea, Vomiting Genitourinary Symptoms: No Symptoms Musculoskeletal: No Symptoms Skin: No Symptoms Neurological: No Symptoms Psychological: No Symptoms Endocrine: No Symptoms Hematologic/Lymphatic: No Symptoms Immunological/Allergic: No Symptoms Medications & Allergies Home Medications: Home Medication List Levothyroxine Sodium [Synthroid] 88 mcg PO DAILY 04/06/16 [History Confirmed 12/16/23] dilTIAZem HCl [Cardizem Cd] 180 mg PO DAILY 09/05/16 [History Confirmed 12/16/23] Metformin HCl 500 mg PO BID 12/23/17 [History Confirmed 12/16/23] Tramadol HCl 50 mg PO Q4-6HPRN PRN #10 tablet 04/04/18 [Rx Confirmed 12/16/23] Atorvastatin Calcium 10 mg PO HS 12/28/22 [History Confirmed 12/16/23] Linaclotide [Linzess] 140 mcg PO DAILY PRN PRN 12/28/22 [History Confirmed 12/16/23] Valsartan 80 mg PO DAILY 12/28/22 [History Confirmed 12/16/23] Allergies/Adverse Reactions: Allergies Allergy/AdvReac Type Severity Reaction Status Date / Time No Known Drug Allergies Allergy Verified 12/16/23 06:31 - Past Medical History Past Medical History: Yes Neurological History: No Pertinent History ENT History: No Pertinent History Cardiac History: Arrhythmia Respiratory History: No Pertinent History Endocrine Medical History: Diabetes Type II, Hypothyroidism Musculoskelatal History: Osteoarthritis GI Medical History: Gallbladder Disease History: No Pertinent History Pyscho-Social History: No Pertinent History Reproductive Disorders: No Pertinent History Comment: hx of svt - Female History Are you now?: No - Past Surgical History Past Surgical History: Yes Neuro Surgical History: No Pertinent History Cardiac History: No Pertinent History Respiratory Surgery: No Pertinent History GI Surgical History: Cholecystectomy Genitourinary Surgical Hx: No Pertinent History Musculskeletal Surgical Hx: Orthopedic Surgery Female Surgical History: Section Other Surgical History: tonsils, arthorsopy left and right knee. meniscal tear, partial ACL tear, repaired 03/31/18 - Social History Smoking Status: Former smoker Exposure to second hand smoke: No Alcohol: None Drug Use: none - Social Determinants of Health Will the patient participate in the screening: Declined to provide - Physical Exam Vital Signs: Vital Signs - 24 hr Temp Pulse Resp BP BP Pulse Ox 12/16/23 09:43 97 12/16/23 09:41 55 L 16 97 12/16/23 09:23 97.0 F 109 H 18 191/76 98 12/16/23 09:00 102 H 20 150/73 94 L 12/16/23 08:30 101 H 18 153/72 98 12/16/23 08:00 97 H 20 158/66 97 12/16/23 07:30 95 H 18 158/71 97 12/16/23 07:00 86 17 143/66 97 12/16/23 06:57 153/74 97 12/16/23 06:51 93 L 12/16/23 06:09 97.5 F 99 H 16 144/62 93 L General Appearance: no apparent distress Neurologic Exam: alert, oriented x 3, cooperative Eye Exam: PERRL/EOMI Ears, Nose, Throat Exam: normal ENT inspection Neck Exam: normal inspection Respiratory Exam: normal breath sounds, lungs clear Cardiovascular Exam: regular rate/rhythm, normal heart sounds Gastrointestinal/Abdomen Exam: soft, normal bowel sounds, tenderness Pelvic Exam: not done Rectal Exam: deferred Back Exam: normal inspection Extremity Exam: normal inspection Results - Labs Lab/Micro Results: Lab Results-Last 24 Hours 12/16/23 12/16/23 12/16/23 Range/Units 06:22 06:22 06:22 WBC 14.8 H (4.0-10.5) x10^3/uL RBC 4.07 L (4.1-5.4) x10^6/uL Hgb 12.8 (12.0-16.0) g/dL Hct 39.6 (35-47) % MCV 97.3 (78-100) fL MCH 31.4 (26-32) pg MCHC 32.3 (32-36) g/dL RDW 13.6 (11.5-14.0) % Plt Count 253 (150-450) x10^3/uL MPV 11.3 H (7.5-11.0) fL Segmented Neutrophils 90 H (36.0-66.0) % Lymphocytes (Manual) 2 L (24-44) % Monocytes (Manual) 8 (0.0-12.0) % Platelet Estimate NORMAL (NORMAL) RBC Morphology NORMAL Sodium 141 (135-145) mmol/L Potassium 3.7 (3.5-5.1) mmol/L Chloride 106 (98-107) mmol/L Carbon Dioxide 27 (22-30) mmol/L Anion Gap 12.0 (5-15) MEQ/L BUN 29 H (7-17) mg/dL Creatinine 1.05 H (0.52-1.04) mg/dL Estimated GFR 54.7 ML/MIN Glucose 143 H (74-106) mg/dL Calcium 9.7 (8.4-10.2) mg/dL Total Bilirubin 0.60 (0.2-1.3) mg/dL AST 29 (14-36) U/L ALT 28 (0-35) U/L Alkaline Phosphatase 82 (38-126) U/L Troponin I < 0.012 (0.000-0.033) ng/mL Serum Total Protein 8.2 (6.3-8.2) g/dL Albumin 4.8 (3.5-5.0) g/dL Lipase 210 (23-300) U/L - Radiology Impressions Radiology Exams & Impressions: Radiology Procedures Category Date Time Status ABDOMEN AND PELVIS W/0 CONTRAS [CT] Stat Exams 12/16/23 06:40 Completed - Other Procedures and Tests Respiratory Therapy 12/16/23 09:43 Oxygen Nasal Cannula 2 lpm Assessment/Plan (1) Viral gastroenteritis Current Visit: Yes Status: Acute Assessment & Plan: -Supportive therapies with IVF, anti-emetics -collect stools for CDIff, cultures -hold immodium until CDiff results -Pain control -ADAT Code(s): A08.4 - VIRAL INTESTINAL INFECTION, UNSPECIFIED (2) ADELINA (acute kidney injury) Current Visit: Yes Status: Acute Assessment & Plan: -Most likely secondary to hypovolemia -Avoid NSAIDS/PORSHA/ARB/ diurectics -IVF -Monitor renal/lytes Code(s): N17.9 - ACUTE KIDNEY FAILURE, UNSPECIFIED (3) HTN (hypertension) Current Visit: Yes Status: Acute Assessment & Plan: -continue meds when able to tolerate po Code(s): I10 - ESSENTIAL (PRIMARY) HYPERTENSION (4) HLD (hyperlipidemia) Current Visit: Yes Status: Acute Assessment & Plan: -continue meds when able to tolerate po Code(s): E78.5 - HYPERLIPIDEMIA, UNSPECIFIED (5) Diabetes mellitus Current Visit: Yes Status: Acute Assessment & Plan: -ADA diet when able to tolerate po -Hold metformin -SSI when able to tolerate PO -A1c Code(s): E11.9 - TYPE 2 DIABETES MELLITUS WITHOUT COMPLICATIONS (6) History of supraventricular tachycardia Current Visit: Yes Status: Acute Assessment & Plan: -Resume home meds when able to tolerate po VTE: bilateral scds PPI: protonix Dispo: 1-2 days Code(s): Z86.79 - PERSONAL HISTORY OF OTHER DISEASES OF THE CIRCULATORY SYSTEM
[2023-12-16] MEDS ORDERED: HUMALOG SQ PRN (11:03)
[2023-12-16] MEDS ORDERED: ULTRAM 50 MG PO PRN (11:07)
[2023-12-16] MEDS: Sodium Chloride 0.9% 1000 ML 1,000 ML IV SCH (12:35)
[2023-12-16] MEDS: Cardizem CD PO SCH (12:37)
[2023-12-16] MEDS: SYNTHROID 88 MCG PO SCH (12:38)
[2023-12-16] MEDS: DIOVAN 80 MG PO SCH (12:38)
[2023-12-16 12:46] LABS: Appearance Cloudy (Clear); Bacteria None Seen /HPF (None Seen); Bilirubin Negative (Negative); Blood Small (Negative); Epithelial Cells None Seen /HPF (None Seen); Glucose, Urine Negative (Negative); Hyaline Casts NONE SEEN /LPF (0-2); Ketones Negative (Negative); Leukocyte Esterase Negative (Negative); Nitrite Negative (Negative); Ph 5.5 (4.6-8.0); Protein,Urine Dip Negative (Negative); Specific Gravity 1.025 (1.005-1.030); Urobilinogen 0.2 mg/dL (0.2); WBC 0-2 /HPF (0-5)
[2023-12-16 12:48] LABS: ADD URINE CULTURE? NO (NO)
--- NOTE | 2023-12-16 17:01 | XRAY ---
Indication: Abdominal pain. Hepatic lesion. Cholecystectomy. Two-dimensional abdominal sonogram performed. Comparison: None Left lobe liver demonstrates 2 tiny cysts, largest 9 mm. No focal solid hepatic mass, hepatomegaly, or free fluid. Gallbladder surgically absent. Common bile duct measures 7.6 mm. No intrahepatic biliary distention. Remaining visualized pancreas and spleen are homogeneous in echogenicity. Visualized aorta and IVC are normal in course and caliber. Right kidney measures 9.2 x 4.3 x 4.5 cm and left measures 9.4 x 5.9 x 4.6 cm. No focal solid/cystic renal mass or hydronephrosis. Impression: Tiny benign hepatic cysts. Remaining abdominal sonogram is negative.
[2023-12-16 17:18] LABS: INFLUENZA A NEGATIVE (NEGATIVE); INFLUENZA B NEGATIVE (NEGATIVE); RESPIRATORY SYNCTIAL VIRUS NEGATIVE (NEGATIVE); SARS-CoV-2 Xpert Express NEGATIVE (NEGATIVE)
[2023-12-16] MEDS: TYLENOL 325 MG PO PRN (19:51)
[2023-12-16] MEDS: Zocor 10MG PO SCH (21:26)
[2023-12-17 04:58] LABS: Absolute Neutrophil Ct (ANC) 3.14 x10^3/uL (1.4-6.9); BASOPHIL % 0.2 % (0.0-0.4); Basophil (Absolute #) 0.01 x10^3/uL (0-0.4); Eosinophil % 0.6 % (0.00-5.0); Eosinophil (Absolute #) 0.03 x10^3/uL (0-0.5); Hematocrit 36.8 % (35-47); Hemoglobin 11.6 g/dL (12.0-16.0); IMMATURE GRAN # 0.01 x10^3u/L (0.00-0.03); IMMATURE GRAN % 0.2 % (0.00-0.4); Lymphocyte (Absolute #) 0.97 x10^3/uL (1.0-4.6); Lymphocytes % 18.1 % (24.0-44.0); Mean Cell Volume 98.7 fL (78-100); Mean Corpuscular Hemoglobin 31.1 pg (26-32); Mean Corpuscular Hgb Concent. 31.5 g/dL (32-36); Monocyte (Absolute #) 1.21 x10^3/uL (0.0-1.3); Monocytes % 22.5 % (0.0-12.0); Neutrophil % 58.4 % (36.0-66.0); Platelet Count 218 x10^3/uL (150-450); Red Blood Count 3.73 x10^6/uL (4.1-5.4); Red Cell Distribution Width 14.1 % (11.5-14.0); White Blood Count 5.4 x10^3/uL (4.0-10.5)
[2023-12-17 05:28] LABS: ALBUMIN 3.8 g/dL (3.5-5.0); ANION GAP 8.3 MEQ/L (5-15); BILIRUBIN,TOTAL 0.6 mg/dL (0.2-1.3); Calcium 8.1 mg/dL (8.4-10.2); Creatinine 1 0.89 mg/dL (0.52-1.04); EST GLOMERULAR FILTRATION RATE 66.7 ML/MIN; Potassium 3.7 mmol/L (3.5-5.1); Total Protein 6.7 g/dL (6.3-8.2)
--- NOTE | 2023-12-17 08:44 | CONS ---
CONSULT DATE: 12/16/2023 HISTORY: Diane Livingston is 78 years old. She just lives [place] the [address] from [place] in [place] on [address]. She was having no GI symptoms at all until this morning at 1:00 a.m. She has had two or three tacos about 6 p.m. She developed nausea and vomiting. She had no pain. Her nausea and vomiting has cleared. She is hungry. We have ordered full liquids for her. Her abdomen was soft. There were no peritoneal signs. There is very mild distention. She said she had a cholecystectomy quite some while ago. She has not had stomach ulcers or diverticulitis. She has had a colonoscopy at some time. She has not had any diarrhea with abdominal pain. Nobody else has been sick in the family. It seems to be a little coincidence here with the tacos yesterday. IMPRESSION: Gastrointestinal viral or germ-related illness. We will see how she is doing tomorrow. If she is not totally improved, we will consider getting a small bowel follow through on her. At this time, she certainly had a cholecystectomy and her symptoms are one episode very limited. I do not think we have to spend a lot of attention on it. She does not require EGD or colonoscopy here in the hospital at this time. PLAN: We will check back with her tomorrow and see how her advancement on her diet is progressing.
[2023-12-17 09:46] LABS: 027 TOX PROD PRESUMPTIVE NEGATIVE (NEGATIVE); TOXIGENIC C. DIFF ORG NEGATIVE (NEGATIVE)
[2023-12-17 11:17] VITALS: BP 139/62; PULSE 87; RESP 18; TEMP 98.1; O2SAT 98
--- NOTE | 2023-12-17 11:29 | PCM.DS ---
Discharge Summary Date of Admission: 12/16/23 09:15 Date of Discharge: 12/17/23 Admitting Physician: JOCELYN MARY MD Consults: Consults on Case 12/16/23 12:13 Consult Surgery ROUTINE Primary Care Provider: HAY SYED Allergies Allergies No Known Drug Allergies Allergy (Verified 12/16/23 06:31) Hospital Summary - Hospital Course Hospital Course: is a 78 year old female with a pmhx of HTN, DM, HLD, DM, hypothyroid, and SVT who presented to [facility] 12/16/23 after experiencing sudden onset of nausea, bilious vomiting, diffuse abdominal pain, and diarrhea. Upon arrival to ED, mickey ls stable. EKG NS with no ST elevations/deviations suggest enteritis or impending obstruction/ileus. Lab findings remarkable with leukocytosis and mid ADELINA. Pt given IVF bolus and zofran in ED with noted relief. Admitted with ADELINA and viral gastroenteritis. There was some question on CT of impending obstruction/ileus. Surgery consulted and felt most likely gastrointestinal illness rather than obstruction. Patient has been able to tolerate a diet with no further episodes of nausea or vomiting. Labs and vitals stable. CDiff negative. Will discharge patient home after lunch if she is able to tolerate a regular diet. Discharge Note New Diagnosis: viral gastroenteritis New Medications: none Follow Up: pcp Latest Assessment & Plan (1) Viral gastroenteritis Current Visit: Yes Status: Acute Assessment & Plan: -Supportive therapies with IVF, anti-emetics -collect stools for CDIff, cultures -hold immodium until CDiff results -Pain control -ADAT 12/16: -no further vomiting/nausea, still with some loose stools -CDiff negative - cultures pending -tolerating diet Code(s): A08.4 - VIRAL INTESTINAL INFECTION, UNSPECIFIED (2) ADELINA (acute kidney injury) Current Visit: Yes Status: Acute Assessment & Plan: -Most likely secondary to hypovolemia -Avoid NSAIDS/PORSHA/ARB/ diurectics -IVF -Monitor renal/lytes 12/16: -Resolved Code(s): N17.9 - ACUTE KIDNEY FAILURE, UNSPECIFIED (3) HTN (hypertension) Current Visit: Yes Status: Acute Assessment & Plan: -continue meds when able to tolerate po Code(s): I10 - ESSENTIAL (PRIMARY) HYPERTENSION (4) HLD (hyperlipidemia) Current Visit: Yes Status: Acute Assessment & Plan: -continue meds when able to tolerate po Code(s): E78.5 - HYPERLIPIDEMIA, UNSPECIFIED (5) Diabetes mellitus Current Visit: Yes Status: Acute Assessment & Plan: -ADA diet when able to tolerate po -Hold metformin -SSI when able to tolerate PO -A1c Code(s): E11.9 - TYPE 2 DIABETES MELLITUS WITHOUT COMPLICATIONS (6) History of supraventricular tachycardia Current Visit: Yes Status: Acute Assessment & Plan: -Resume home meds when able to tolerate po I spent 35 minutes [id number] with the patient on the day of discharge performing discharge exam, discussing hospital stay and discharge instructions with patient and caregivers, preparation of discharge records, prescriptions & referral forms and addressing any questions/concerns the patient had as documented above. - Vitals & Intake/Output Vital Signs: Vital Signs Temperature 98.1 F 12/17/23 11:16 Pulse Rate 87 12/17/23 11:16 Respiratory Rate 18 12/17/23 11:16 Blood Pressure 139/62 12/17/23 11:16 O2 Sat by Pulse Oximetry 98 12/17/23 11:16 Intake & Output: Intake & Output 12/14/23 12/15/23 12/16/23 12/17/23 11:59 11:59 11:59 11:59 Intake Total 2932 Output Total 600 Balance 2332 Weight 81.9 kg 82 kg - Lab Result Diagrams: 12/17/23 04:42 12/17/23 04:42 Lab Results-Last 24 Hrs: Lab Results-Last 24 Hours 12/16/23 12/16/23 12/16/23 Range/Units 06:22 09:06 10:55 WBC (4.0-10.5) x10^3/uL RBC (4.1-5.4) x10^6/uL Hgb (12.0-16.0) g/dL Hct (35-47) % MCV (78-100) fL MCH (26-32) pg MCHC (32-36) g/dL RDW (11.5-14.0) % Plt Count (150-450) x10^3/uL MPV (7.5-11.0) fL Gran % (36.0-66.0) % Immature Gran % (Auto) (0.00-0.4) % Nucleat RBC Rel Count (0.00-0.1) % Eos # (Auto) (0-0.5) x10^3/uL Immature Gran # (Auto) (0.00-0.03) x10^3u/L Absolute Lymphs (auto) (1.0-4.6) x10^3/uL Absolute Monos (auto) (0.0-1.3) x10^3/uL Absolute Nucleated RBC (0.00-0.01) x10^3u/L Lymphocytes % (24.0-44.0) % Monocytes % (0.0-12.0) % Eosinophils % (0.00-5.0) % Basophils % (0.0-0.4) % Absolute Granulocytes (1.4-6.9) x10^3/uL Basophils # (0-0.4) x10^3/uL Sodium (135-145) mmol/L Potassium (3.5-5.1) mmol/L Chloride (98-107) mmol/L Carbon Dioxide (22-30) mmol/L Anion Gap (5-15) MEQ/L BUN (7-17) mg/dL Creatinine (0.52-1.04) mg/dL Estimated GFR ML/MIN Glucose (74-106) mg/dL POC Glucometer (74 to 106) mg/dL Hemoglobin A1c 5.86 (4.5-6.0) % Calcium (8.4-10.2) mg/dL Total Bilirubin (0.2-1.3) mg/dL AST (14-36) U/L ALT (0-35) U/L Alkaline Phosphatase (38-126) U/L Troponin I < 0.012 (0.000-0.033) ng/mL Serum Total Protein (6.3-8.2) g/dL Albumin (3.5-5.0) g/dL Urine Color (Yellow) Urine Appearance (Clear) Urine pH (4.6-8.0) Ur Specific [place] (1.005-1.030) Urine Protein (Negative) Urine Glucose (UA) (Negative) mg/dL Urine Ketones (Negative) Urine Blood (Negative) Urine Nitrite (Negative) Urine Bilirubin (Negative) Urine Urobilinogen (0.2) mg/dL Ur Leukocyte Esterase (Negative) U Hyaline Cast (Auto) (0-2) /LPF Urine Microscopic RBC (0-5) /HPF Urine Microscopic WBC (0-5) /HPF Ur Epithelial Cells (None Seen) /HPF Urine Bacteria (None Seen) /HPF Urine Culture Reflexed (NO) C. difficile Screen NEGATIVE (NEGATIVE) C.difficile 027-NAP1-B1 PRESUMPTIVE NEGATIVE (NEGATIVE) Influenza Type A Ag (NEGATIVE) Influenza Type B Ag (NEGATIVE) RSV (PCR) (NEGATIVE) SARS-CoV-2 (PCR) (NEGATIVE) 12/16/23 12/16/23 12/16/23 Range/Units 11:20 11:39 14:57 WBC (4.0-10.5) x10^3/uL RBC (4.1-5.4) x10^6/uL Hgb (12.0-16.0) g/dL Hct (35-47) % MCV (78-100) fL MCH (26-32) pg MCHC (32-36) g/dL RDW (11.5-14.0) % Plt Count (150-450) x10^3/uL MPV (7.5-11.0) fL Gran % (36.0-66.0) % Immature Gran % (Auto) (0.00-0.4) % Nucleat RBC Rel Count (0.00-0.1) % Eos # (Auto) (0-0.5) x10^3/uL Immature Gran # (Auto) (0.00-0.03) x10^3u/L Absolute Lymphs (auto) (1.0-4.6) x10^3/uL Absolute Monos (auto) (0.0-1.3) x10^3/uL Absolute Nucleated RBC (0.00-0.01) x10^3u/L Lymphocytes % (24.0-44.0) % Monocytes % (0.0-12.0) % Eosinophils % (0.00-5.0) % Basophils % (0.0-0.4) % Absolute Granulocytes (1.4-6.9) x10^3/uL Basophils # (0-0.4) x10^3/uL Sodium (135-145) mmol/L Potassium (3.5-5.1) mmol/L Chloride (98-107) mmol/L Carbon Dioxide (22-30) mmol/L Anion Gap (5-15) MEQ/L BUN (7-17) mg/dL Creatinine (0.52-1.04) mg/dL Estimated GFR ML/MIN Glucose (74-106) mg/dL POC Glucometer 125 H (74 to 106) mg/dL Hemoglobin A1c (4.5-6.0) % Calcium (8.4-10.2) mg/dL Total Bilirubin (0.2-1.3) mg/dL AST (14-36) U/L ALT (0-35) U/L Alkaline Phosphatase (38-126) U/L Troponin I < 0.012 (0.000-0.033) ng/mL Serum Total Protein (6.3-8.2) g/dL Albumin (3.5-5.0) g/dL Urine Color Yellow (Yellow) Urine Appearance Cloudy A (Clear) Urine pH 5.5 (4.6-8.0) Ur Specific [place] 1.025 (1.005-1.030) Urine Protein Negative (Negative) Urine Glucose (UA) Negative (Negative) mg/dL Urine Ketones Negative (Negative) Urine Blood Small A (Negative) Urine Nitrite Negative (Negative) Urine Bilirubin Negative (Negative) Urine Urobilinogen 0.2 (0.2) mg/dL Ur Leukocyte Esterase Negative (Negative) U Hyaline Cast (Auto) NONE SEEN (0-2) /LPF Urine Microscopic RBC 6-10 A (0-5) /HPF Urine Microscopic WBC 0-2 (0-5) /HPF Ur Epithelial Cells None Seen (None Seen) /HPF Urine Bacteria None Seen (None Seen) /HPF Urine Culture Reflexed NO (NO) C. difficile Screen (NEGATIVE) C.difficile 027-NAP1-B1 (NEGATIVE) Influenza Type A Ag (NEGATIVE) Influenza Type B Ag (NEGATIVE) RSV (PCR) (NEGATIVE) SARS-CoV-2 (PCR) (NEGATIVE) 12/16/23 12/16/23 12/16/23 Range/Units 16:05 16:30 20:59 WBC (4.0-10.5) x10^3/uL RBC (4.1-5.4) x10^6/uL Hgb (12.0-16.0) g/dL Hct (35-47) % MCV (78-100) fL MCH (26-32) pg MCHC (32-36) g/dL RDW (11.5-14.0) % Plt Count (150-450) x10^3/uL MPV (7.5-11.0) fL Gran % (36.0-66.0) % Immature Gran % (Auto) (0.00-0.4) % Nucleat RBC Rel Count (0.00-0.1) % Eos # (Auto) (0-0.5) x10^3/uL Immature Gran # (Auto) (0.00-0.03) x10^3u/L Absolute Lymphs (auto) (1.0-4.6) x10^3/uL Absolute Monos (auto) (0.0-1.3) x10^3/uL Absolute Nucleated RBC (0.00-0.01) x10^3u/L Lymphocytes % (24.0-44.0) % Monocytes % (0.0-12.0) % Eosinophils % (0.00-5.0) % Basophils % (0.0-0.4) % Absolute Granulocytes (1.4-6.9) x10^3/uL Basophils # (0-0.4) x10^3/uL Sodium (135-145) mmol/L Potassium (3.5-5.1) mmol/L Chloride (98-107) mmol/L Carbon Dioxide (22-30) mmol/L Anion Gap (5-15) MEQ/L BUN (7-17) mg/dL Creatinine (0.52-1.04) mg/dL Estimated GFR ML/MIN Glucose (74-106) mg/dL POC Glucometer 120 H 126 H (74 to 106) mg/dL Hemoglobin A1c (4.5-6.0) % Calcium (8.4-10.2) mg/dL Total Bilirubin (0.2-1.3) mg/dL AST (14-36) U/L ALT (0-35) U/L Alkaline Phosphatase (38-126) U/L Troponin I (0.000-0.033) ng/mL Serum Total Protein (6.3-8.2) g/dL Albumin (3.5-5.0) g/dL Urine Color (Yellow) Urine Appearance (Clear) Urine pH (4.6-8.0) Ur Specific [place] (1.005-1.030) Urine Protein (Negative) Urine Glucose (UA) (Negative) mg/dL Urine Ketones (Negative) Urine Blood (Negative) Urine Nitrite (Negative) Urine Bilirubin (Negative) Urine Urobilinogen (0.2) mg/dL Ur Leukocyte Esterase (Negative) U Hyaline Cast (Auto) (0-2) /LPF Urine Microscopic RBC (0-5) /HPF Urine Microscopic WBC (0-5) /HPF Ur Epithelial Cells (None Seen) /HPF Urine Bacteria (None Seen) /HPF Urine Culture Reflexed (NO) C. difficile Screen (NEGATIVE) C.difficile 027-NAP1-B1 (NEGATIVE) Influenza Type A Ag NEGATIVE (NEGATIVE) Influenza Type B Ag NEGATIVE (NEGATIVE) RSV (PCR) NEGATIVE (NEGATIVE) SARS-CoV-2 (PCR) NEGATIVE (NEGATIVE) 12/17/23 12/17/23 12/17/23 Range/Units 04:42 04:42 06:41 WBC 5.4 (4.0-10.5) x10^3/uL RBC 3.73 L (4.1-5.4) x10^6/uL Hgb 11.6 L (12.0-16.0) g/dL Hct 36.8 (35-47) % MCV 98.7 (78-100) fL MCH 31.1 (26-32) pg MCHC 31.5 L (32-36) g/dL RDW 14.1 H (11.5-14.0) % Plt Count 218 (150-450) x10^3/uL MPV 11.0 (7.5-11.0) fL Gran % 58.4 (36.0-66.0) % Immature Gran % (Auto) 0.2 (0.00-0.4) % Nucleat RBC Rel Count 0.0 (0.00-0.1) % Eos # (Auto) 0.03 (0-0.5) x10^3/uL Immature Gran # (Auto) 0.01 (0.00-0.03) x10^3u/L Absolute Lymphs (auto) 0.97 L (1.0-4.6) x10^3/uL Absolute Monos (auto) 1.21 (0.0-1.3) x10^3/uL Absolute Nucleated RBC 0.00 (0.00-0.01) x10^3u/L Lymphocytes % 18.1 L (24.0-44.0) % Monocytes % 22.5 H (0.0-12.0) % Eosinophils % 0.6 (0.00-5.0) % Basophils % 0.2 (0.0-0.4) % Absolute Granulocytes 3.14 (1.4-6.9) x10^3/uL Basophils # 0.01 (0-0.4) x10^3/uL Sodium 139 (135-145) mmol/L Potassium 3.7 (3.5-5.1) mmol/L Chloride 109 H (98-107) mmol/L Carbon Dioxide 25 (22-30) mmol/L Anion Gap 8.3 (5-15) MEQ/L BUN 18 H (7-17) mg/dL Creatinine 0.89 (0.52-1.04) mg/dL Estimated GFR 66.7 ML/MIN Glucose 103 (74-106) mg/dL POC Glucometer 96 (74 to 106) mg/dL Hemoglobin A1c (4.5-6.0) % Calcium 8.1 L D (8.4-10.2) mg/dL Total Bilirubin 0.60 (0.2-1.3) mg/dL AST 33 (14-36) U/L ALT 23 (0-35) U/L Alkaline Phosphatase 63 (38-126) U/L Troponin I (0.000-0.033) ng/mL Serum Total Protein 6.7 (6.3-8.2) g/dL Albumin 3.8 (3.5-5.0) g/dL Urine Color (Yellow) Urine Appearance (Clear) Urine pH (4.6-8.0) Ur Specific [place] (1.005-1.030) Urine Protein (Negative) Urine Glucose (UA) (Negative) mg/dL Urine Ketones (Negative) Urine Blood (Negative) Urine Nitrite (Negative) Urine Bilirubin (Negative) Urine Urobilinogen (0.2) mg/dL Ur Leukocyte Esterase (Negative) U Hyaline Cast (Auto) (0-2) /LPF Urine Microscopic RBC (0-5) /HPF Urine Microscopic WBC (0-5) /HPF Ur Epithelial Cells (None Seen) /HPF Urine Bacteria (None Seen) /HPF Urine Culture Reflexed (NO) C. difficile Screen (NEGATIVE) C.difficile 027-NAP1-B1 (NEGATIVE) Influenza Type A Ag (NEGATIVE) Influenza Type B Ag (NEGATIVE) RSV (PCR) (NEGATIVE) SARS-CoV-2 (PCR) (NEGATIVE) 12/17/23 Range/Units 11:06 WBC (4.0-10.5) x10^3/uL RBC (4.1-5.4) x10^6/uL Hgb (12.0-16.0) g/dL Hct (35-47) % MCV (78-100) fL MCH (26-32) pg MCHC (32-36) g/dL RDW (11.5-14.0) % Plt Count (150-450) x10^3/uL MPV (7.5-11.0) fL Gran % (36.0-66.0) % Immature Gran % (Auto) (0.00-0.4) % Nucleat RBC Rel Count (0.00-0.1) % Eos # (Auto) (0-0.5) x10^3/uL Immature Gran # (Auto) (0.00-0.03) x10^3u/L Absolute Lymphs (auto) (1.0-4.6) x10^3/uL Absolute Monos (auto) (0.0-1.3) x10^3/uL Absolute Nucleated RBC (0.00-0.01) x10^3u/L Lymphocytes % (24.0-44.0) % Monocytes % (0.0-12.0) % Eosinophils % (0.00-5.0) % Basophils % (0.0-0.4) % Absolute Granulocytes (1.4-6.9) x10^3/uL Basophils # (0-0.4) x10^3/uL Sodium (135-145) mmol/L Potassium (3.5-5.1) mmol/L Chloride (98-107) mmol/L Carbon Dioxide (22-30) mmol/L Anion Gap (5-15) MEQ/L BUN (7-17) mg/dL Creatinine (0.52-1.04) mg/dL Estimated GFR ML/MIN Glucose (74-106) mg/dL POC Glucometer 103 (74 to 106) mg/dL Hemoglobin A1c (4.5-6.0) % Calcium (8.4-10.2) mg/dL Total Bilirubin (0.2-1.3) mg/dL AST (14-36) U/L ALT (0-35) U/L Alkaline Phosphatase (38-126) U/L Troponin I (0.000-0.033) ng/mL Serum Total Protein (6.3-8.2) g/dL Albumin (3.5-5.0) g/dL Urine Color (Yellow) Urine Appearance (Clear) Urine pH (4.6-8.0) Ur Specific [place] (1.005-1.030) Urine Protein (Negative) Urine Glucose (UA) (Negative) mg/dL Urine Ketones (Negative) Urine Blood (Negative) Urine Nitrite (Negative) Urine Bilirubin (Negative) Urine Urobilinogen (0.2) mg/dL Ur Leukocyte Esterase (Negative) U Hyaline Cast (Auto) (0-2) /LPF Urine Microscopic RBC (0-5) /HPF Urine Microscopic WBC (0-5) /HPF Ur Epithelial Cells (None Seen) /HPF Urine Bacteria (None Seen) /HPF Urine Culture Reflexed (NO) C. difficile Screen (NEGATIVE) C.difficile 027-NAP1-B1 (NEGATIVE) Influenza Type A Ag (NEGATIVE) Influenza Type B Ag (NEGATIVE) RSV (PCR) (NEGATIVE) SARS-CoV-2 (PCR) (NEGATIVE) Micro Results-Entire Visit: Accuchecks Date 12/17/23 Date 12/17/23 Date 12/16/23 Date 12/16/23 Date 12/16/23 Time 11:17 Time 07:08 Time 21:00 - Radiology Exams Ordered Rad Exams-Entire Visit: Radiology Procedures Category Date Time Status ABDOMEN AND PELVIS W/0 CONTRAS [CT] Stat Exams 12/16/23 06:40 Completed UPPER ABDOMEN [US] Urgent Exams 12/16/23 12:21 Completed - Procedures and Test Procedures and Tests throughout Hospitalization: Therapy Orders & Screens 12/16/23 09:20 Respiratory Therapy Consult ONCE Comment: Reason For Exam: 12/16/23 09:43 Oxygen Nasal Cannula 2 lpm Comment: Diagnosis: Nausea /vomiting/ diarrhea 12/16/23 10:53 Respiratory Therapy Consult ONCE Comment: Reason For Exam: Diagnosis: Nausea /vomiting/ diarrhea Discharge Exam General Appearance: no apparent distress Neurologic Exam: alert, oriented x 3, cooperative Eye Exam: PERRL Ears, Nose, Throat Exam: normal ENT inspection Neck Exam: normal inspection Respiratory Exam: normal breath sounds, lungs clear Cardiovascular Exam: regular rate/rhythm, normal heart sounds Gastrointestinal/Abdomen Exam: soft, normal bowel sounds Pelvic Exam: deferred Rectal Exam: deferred Back Exam: normal inspection Extremity Exam: normal inspection Skin Exam: normal color Final Diagnosis/Problem List - Final Discharge Diagnosis/Problem (1) Viral gastroenteritis Current Visit: Yes Status: Acute Code(s): A08.4 - VIRAL INTESTINAL INFECTION, UNSPECIFIED (2) ADELINA (acute kidney injury) Current Visit: Yes Status: Resolved Code(s): N17.9 - ACUTE KIDNEY FAILURE, UNSPECIFIED (3) HTN (hypertension) Current Visit: Yes Status: Chronic Code(s): I10 - ESSENTIAL (PRIMARY) HYPERTENSION (4) HLD (hyperlipidemia) Current Visit: Yes Status: Chronic Code(s): E78.5 - HYPERLIPIDEMIA, UNSPECIFIED (5) Diabetes mellitus Current Visit: Yes Status: Chronic Code(s): E11.9 - TYPE 2 DIABETES MELLITUS WITHOUT COMPLICATIONS (6) History of supraventricular tachycardia Current Visit: Yes Status: Acute Code(s): Z86.79 - PERSONAL HISTORY OF OTHER DISEASES OF THE CIRCULATORY SYSTEM - Discharge Disposition: Home, Self-Care Condition: Stable Prescriptions: Continue Levothyroxine Sodium [Synthroid] 88 mcg PO DAILY dilTIAZem HCl [Cardizem Cd] 180 mg PO DAILY Metformin HCl 500 mg PO BID Tramadol HCl 50 mg PO Q4-6HPRN PRN #10 tablet PRN Reason: Pain Linaclotide [Linzess] 140 mcg PO DAILY PRN PRN PRN Reason: Constipation Atorvastatin Calcium 10 mg PO HS Valsartan 80 mg PO DAILY Follow up with: HAY SYED MD [Primary Care Provider] -
== END 2023-12-17 14:23 | disposition home or self-care (01) ==
LOC: ED 06:08 → MED SURG 09:15
PROVIDERS: ADMIT Internal Medicine; ATTEND Internal Medicine
DX: A08.4 Viral intestinal infection, unspecified (principal); N17.9 Acute kidney failure, unspecified; I10 Essential (primary) hypertension; E78.5 Hyperlipidemia, unspecified; E11.9 Type 2 diabetes mellitus without complications; E03.9 Hypothyroidism, unspecified; R19.7 Diarrhea, unspecified; R11.2 Nausea with vomiting, unspecified; Z86.79 Personal history of other diseases of the circulatory system; Z79.899 Other long term (current) drug therapy
CPT/HCPCS: 0241U; 36000; 36415; 74176; 76700; 80053; 81001; 82947; 83036; 83690; 84484; 85025; 87045; 87046; 87177; 87209; 87328; 87329; 87427; 87493; 93005; 94760; 96360; 96374; 99285; G0378; Q3014; J2405; A9270-GY

== ENCOUNTER 2025-02-15 08:28 | Day surgery (SDC) | payer MEDICARE ==
[2025-02-15] MEDS ORDERED: Depo-Medrol 40 MG/ML IM ONE (08:29)
[2025-02-15] MEDS ORDERED: BUPIVACAINE 0.5% VIAL IJ ONE (08:29)
[2025-02-15] MEDS ORDERED: propofoL IV ONE (10:26)
--- NOTE | 2025-02-15 11:08 | XRAY ---
Indication: Left ankle injection. Intraoperative fluoroscopy provided for 7 seconds. Single AP digital spot image submitted for interpretation demonstrates anterior needle tip projecting over left talotibial articulation. Small amount of contrast injected for needle tip placement. Correlate with intraoperative findings/report.
--- NOTE | 2025-02-15 11:29 | XRAY ---
7 seconds of fluoroscopy was used in surgery for a left intra-articular ankle injection.
[2025-02-15] MEDS ORDERED: Lactated Ringers 1,000 ML IV ONE (12:18)
== END 2025-02-15 11:01 | disposition home or self-care (01) ==
LOC: SDC-PAIN 08:28
PROVIDERS: ATTEND Psychiatry & Neurology Pain Medicine
DX: M19.072 Primary osteoarthritis, left ankle and foot (principal); E11.9 Type 2 diabetes mellitus without complications

== ENCOUNTER 2025-07-02 05:53 | Day surgery (SDC) | payer MEDICARE ==
[2025-07-02] MEDS ORDERED: celeBREX 100 MG ONE (06:13)
[2025-07-02] MEDS ORDERED: TYLENOL EXTRA STRENGTH 500 MG ONE (06:13)
[2025-07-02] MEDS ORDERED: CEFAZOLIN SODIUM ONE (06:19)
[2025-07-02] MEDS ORDERED: TRANEXAMIC 1,000 MG/100ML-NACL 1,000 MG/100 ML PIGGYBACK IV ONE (06:19)
[2025-07-02] MEDS: celeBREX 100 MG PO ONE (06:29)
[2025-07-02] MEDS: TYLENOL EXTRA STRENGTH 500 MG PO ONE (06:29)
[2025-07-02] MEDS: TRANEXAMIC 1,000 MG/100ML-NACL 1,000 MG/100 ML PIGGYBACK IV ONE (06:31)
[2025-07-02] MEDS: NEURONTIN PO ONE (07:19)
[2025-07-02] MEDS ORDERED: SUBLIMAZE 100 MCG/2 ML ONE (07:51)
[2025-07-02] MEDS ORDERED: Versed 2 MG/2 ML Injection ONE ×2 (07:52→08:58)
[2025-07-02] MEDS ORDERED: propofoL IV ONE ×3 (07:53→09:36)
[2025-07-02] MEDS ORDERED: Marcaine 0.5%/Epinephrine 10 ML ONE (07:54)
[2025-07-02] MEDS ORDERED: Xylocaine-Mpf 2% 5 Ml Vial ONE (07:55)
[2025-07-02] MEDS ORDERED: MARCAINE 0.25% PF/ EPI 1:200,000 ONE (07:58)
[2025-07-02] MEDS ORDERED: PHENYLEPHRINE HCL ONE (09:32)
--- NOTE | 2025-07-02 10:57 | XRAY ---
Indication: Postop exam. Comparison: April 05, 2025. AP/cross-table lateral right knee demonstrates new intact total knee arthroplasty with new postoperative soft tissue swelling/emphysema and effusion. Osseous structures remain demineralized. No other bony, articular, or soft tissue abnormalities.
[2025-07-02] MEDS ORDERED: NORCO 10-325 MG PO PRN (13:23)
[2025-07-02] MEDS ORDERED: Hydromorphone 1 mg/ml Injection IV PRN (13:24)
[2025-07-02] MEDS ORDERED: ZOFRAN ODT 4 MG PO PRN (13:24)
[2025-07-02] MEDS: DIOVAN 80 MG PO SCH (15:30)
[2025-07-02] MEDS: Klor Con PO SCH (15:31)
[2025-07-02] MEDS: THERAGRAN MULTIVITAMIN PO SCH (15:31)
[2025-07-02] MEDS: SYNTHROID 50 MCG PO SCH (15:31)
[2025-07-02] MEDS: NORCO 7.5/325 MG TAB PO PRN (16:29)
[2025-07-02] MEDS: Glucophage 500 MG PO SCH (16:30)
[2025-07-02 21:06] VITALS: RESP 18
[2025-07-02] MEDS: Zocor 10MG PO SCH (22:15)
[2025-07-02] MEDS: Pepcid 20 MG PO SCH (22:15)
[2025-07-03 05:52] LABS: Hematocrit 28.5 % (34.1-44.9); Hemoglobin 9.0 g/dL (11.2-15.7); Mean Corpuscular Hemoglobin 31.8 pg (25.6-32.2); Mean Corpuscular Hgb Concent. 31.6 g/dL (32.2-35.5); Platelet Count 199 x10^3/uL (182-369); Red Blood Count 2.83 x10^6/uL (3.93-5.22); White Blood Count 13.5 x10^3/uL (3.98-10.04)
[2025-07-03 08:13] VITALS: BP 141/65; PULSE 100; TEMP 97; O2SAT 92
[2025-07-03] MEDS: LASIX 20 MG PO SCH (08:52)
[2025-07-03] MEDS: Ecotrin 325 MG PO SCH (08:52)
[2025-07-03] MEDS: SYNTHROID 75 MCG PO SCH (08:55)
--- NOTE | 2025-07-03 11:41 | OP ---
SURGERY DATE/TIME: 07/02/2025 [id number] PREOPERATIVE DIAGNOSIS: Osteoarthritis of the right knee. POSTOPERATIVE DIAGNOSIS: Osteoarthritis of the right knee. PROCEDURE: Right total knee replacement arthroplasty utilizing the [employer] instrumentation, a size 6 femoral component press-fit, a size D tibial component cemented, a 13 mm tibial polyethylene bearing tray, and an 8 mm x 25 single peg inset all-poly patella cemented. SURGEON: Francis Arambula II, DO ANESTHESIA: Spinal with a block for postop pain control. DESCRIPTION OF PROCEDURE AND FINDINGS: The patient was identified and informed consent was obtained. The patient was taken to the operative suite and placed into the supine position on the operating table where the block was administered as well as the spinal anesthetic. Once an appropriate level of anesthesia had been obtained, the tourniquet was placed high on the right lower extremity, which was then prepped and draped in the usual sterile fashion. A standard time-out was taken. The foot was put into the boot for the [place] knee souza. The leg was then exsanguinated and the tourniquet was elevated to 350 mmHg. With the knee in a flexed position, standard midline incision was accomplished. Skin and subcutaneous tissue was incised, dissection was carried out, and a standard medial parapatellar incision was accomplished. Upon entering the joint, a copious amount of grade 1 synovial fluid was encountered. Patient was noted to have hard eburnated bone along the entire weightbearing surface of the medial femoral condyle and tibial plateau. Significant degenerative changes were noted at the patellofemoral joint as well. Skip areas of hard eburnated bone were noted in the lateral compartment. At this point, a portion of the fat pad was excised as was the anterior cruciate ligament, and the medial and lateral menisci. Z-retractors were positioned and at this point, the femoral guide was placed, held with the appropriate pins. The holes were then marked. The distal femoral cutting block was applied and the distal femoral cut was accomplished. The 4-in-1 cutting block was applied. The anterior, posterior, and chamfer cuts were then made. Our attention was then turned to the tibial side where any remaining portions of menisci were excised. The posterior retractor was then positioned and the tibial guide was placed, held with its pins. The tibial cutting block was then applied and the proximal wafer of tibia was resected with the oscillating saw. The waver of bone was removed. Tibial trial plate was placed and appropriately rotated and held with its pins. The trial femoral component was then impacted into position and trial reduction showed that the size 13 poly was the appropriate size to give good soft tissue balance in all planes of motion, from full extension to flexion greater than 130 degrees. It should be noted that prior to applying the femoral component, osteophytes were removed from the posterior femur. At this point, attention was turned to the patella where the patellar button was milled after measuring and then resecting with the milling guide. Pre-resection height of the patella had been replaced and tracking was noted to be excellent. The drill holes were made in the femur for the pegs on the permanent component and the trial femoral component was then removed. The tibial trial polyethylene was removed and then the cruciate stem was cut. Following this, trial base plate was removed as was the trial patella. The joint was then copiously irrigated with the pulsed i o psychologist and dried while the cement was being vacuum mixed. Cement was then pressed into the interstices of the bone on the tibia. The tibial component was then cemented into position and impacted into place. Excess cement was removed during the curing process. The femoral component was then press-fit into position and the trial tibial polyethylene was then and the knee was held in extension during the curing process. Any further cement was removed during the curing process. The patellar button was then cemented into position and held with its clamp. Again, excess cement was removed. Once the cement had fully cured, again trial reduction showed excellent tracking of the patella. The soft tissue balance was noted to be excellent from full extension and clear through flexion greater than 135 degrees. At this point, the trial polyethylene tray was removed and the permanent tray was then inserted after the joint had been irrigated with the pulsed i o psychologist. Once the poly had been snapped into position, the knee was again placed through a range of motion. The joint was irrigated and closed with #2 Stratafix, 2-0 Monocryl for subcutaneous tissue, and 3-0 Stratafix subcuticular augmented with Dermabond for skin. An Aquacel dressing was applied. The patient was transferred to the cart and taken to the recovery room in satisfactory condition, having tolerated the procedure well.
== END 2025-07-03 10:59 | disposition home or self-care (01) ==
LOC: SDC 05:53 → MED SURG 11:35 → SDC 07-03 10:59
PROVIDERS: ATTEND Orthopaedic Surgery
DX: M17.11 Unilateral primary osteoarthritis, right knee (principal); E11.9 Type 2 diabetes mellitus without complications